=== PATIENT | female | born 1950 | race Caucasian/White ===

== ENCOUNTER → 2018-04-25 19:45 | Outpatient (CLI) | payer MEDICAID, SELFPAY ==
[2018-04-25 21:52] LABS: Amphetamine Urine VISTA NEGATIVE (<1000 ng/mL); Barbiturate Urine VISTA NEGATIVE (< 200 ng/mL); Benzodiazepine Urine VISTA NEGATIVE (< 200 ng/mL); Cocaine Urine VISTA NEGATIVE (< 300 ng/mL); Ecstacy Urine VISTA POSITIVE (< 500 ng/mL); Methadone Urine VISTA NEGATIVE (< 300 ng/mL); PCP Urine VISTA NEGATIVE (< 25 ng/mL); THC Urine VISTA NEGATIVE (< 50 ng/mL); Vista UDS pH Range 5
== END ==
PROVIDERS: Visit Provider Anesthesiology
DX: F11.20 Opioid dependence, uncomplicated (principal)
CPT/HCPCS: 80307

== ENCOUNTER 2018-08-08 12:09 | Day surgery (SDC) | payer MEDICAID, SELFPAY ==
[2018-08-08 12:45] VITALS: BP 143/80; PULSE 60; RESP 17; TEMP 36.8; O2SAT 99; BMI 32.8
[2018-08-08 13:00] LABS: Bedside Glucose 98 mg/dL (70-110)
--- NOTE | 2018-08-08 13:30 | RAD_ITS ---
PROCEDURE: L3 S1 right facet joint block. DATE OF EXAMINATION: August 08, 2018 INDICATION: Female, 67 years old. Chronic low back pain FLUOROSCOPY TIME (if supplied): (0:18) minutes/seconds. 3 intraoperative images were obtained. Intraoperative imaging was provided for right L3-S1 facet joint block. The spinal needles are seen. RAD/L/S Spine Min 4 Views IMPRESSION: Fluoroscopic imaging provided for intraoperative right L3-S1 facet joint block. Electronically Signed: Surendra Ferrell MD at 15:47 EST Tel [phone], Service support ,
--- NOTE | 2018-08-08 14:23 | DCINST_ITS ---
- Discharge Diagnoses Current Active Problems: Facets joints pain, or back pain You will use the following diet at home:: No restrictions Your food should be the consistency of: Regular Discharge Activity: Return to Normal Activity May shower in (days): 1 May resume sexual activity in: No Restrictions Weight Bearing Status: Weight bearing as tolerated Call your doctor if your incision/area has: Continuous Slow Oozing, Sudden Increased Bleeding, Increased Pain/ Swelling, Increased Redness, Foul Smelling Discharge, Swelling at the incision site Call your doctor if you observe: Calf discomfort, Uncontrolled pain Suture Line Care: Avoid Pulling/Pushing, Avoid Pinching/Bending Cleanse incision/area with: Soap & Water Allergies/Adverse Reactions: Allergies butorphanol [From Stadol] Allergy (Verified 08/08/18 12:44) Unknown ketorolac Allergy (Verified 08/08/18 12:44) Itching prochlorperazine [From Compazine] Allergy (Verified 08/08/18 12:44) Unknown sumatriptan [From Imitrex] Allergy (Verified 08/08/18 12:44) stopped breathing amoxicillin [From Augmentin] Adverse Reaction (Verified 08/08/18 12:44) Nausea/Vom/Diarrhea clavulanic acid [From Augmentin] Adverse Reaction (Verified 08/08/18 12:44) Nausea/Vom/Diarrhea pentazocine [From Talwin] Adverse Reaction (Verified 08/08/18 12:44) Vomiting Medications to take at Discharge ALPRAZolam [Xanax] 0.25 mg PO QHS 08/07/18 Acetaminophen [Tylenol] 650 mg PO Q4H PRN PRN 08/07/18 Albuterol IH (ProAir) [Proair Hfa (SP)Vent Pts] 1 - 2 puff INHALATION Q6H PRN PRN 08/07/18 Albuterol Inhaler [Ventolin Hfa (SP)] 1 - 2 puff INHALATION Q4H PRN PRN 08/07/18 Alendronate Sodium [Fosamax] 70 mg PO Q7D@0700 08/07/18 Aspirin E.C. [Ecotrin] 81 mg PO DAILY@0800 08/07/18 Atorvastatin Calcium [Lipitor] 80 mg PO QHS 08/07/18 Buprenorphine 20 Mcg/Hr [Butrans 20 Mcg/Hr] 10 mcg TRANSDERM. Q7D 12/06/18 Carvedilol [Coreg] 25 mg PO BID 08/07/18 Diclofenac [Voltaren] 50 mg PO BIDCM 08/07/18 Diphenoxylate/Atrop [Lomotil] 1 tablet PO BID PRN PRN 08/07/18 Fluticasone 0.05% [Flonase Nasal [place]] 1 spray NASAL DAILY 08/07/18 Metaxalone [Skelaxin] 800 mg PO BID 08/07/18 Multivitamins,Ther W-Minerals [Multivitamin With Minerals] 1 tablet PO DAILY 08/07/18 Nitroglycerin 0.4 mg SL PRN PRN 08/07/18 Oxybutynin Chloride [Ditropan Xl] 5 mg PO 4X/DAY 08/07/18 Potassium Chloride [K-Dur] 20 meq PO BID 08/07/18 Ranolazine [Ranexa] 500 mg PO BID 08/07/18 Senna [Senokot] 2 tablet PO DAILY PRN 08/07/18 Trazodone ER [Oleptro Er] 300 mg PO QHS 08/07/18 Ubidecarenone [Co Q-10] 30 mg PO BID 08/07/18 Valacyclovir HCl [Valtrex] 500 mg PO DAILY PRN 08/07/18 Zolpidem Tartrate [Ambien (Generic)] 5 mg PO QHS 08/07/18 Primary Care Physician: [facility] Doctor,Out of [Primary Care Provider] - Test Results: Test results from this visit will be discussed in further detail at your follow- up appointment, if applicable. Please Follow Up With: Jung Dunham MD
--- NOTE | 2018-08-08 14:24 | PCM.OPRPT ---
Problem List (1) Low back pain Status: Acute (2) Low back pain Status: Acute (3) Spondylosis of lumbar region without myelopathy or radiculopathy Status: Acute (4) Spondylosis of lumbar region without myelopathy or radiculopathy Status: Acute (5) Acute exacerbation of chronic low back pain Status: Chronic (6) Acute exacerbation of chronic low back pain Status: Chronic Report of Operation Date of Procedure: 08/08/18 Pre-Operative Diagnosis: Lumbar facet joint spondylosis Post-Operative Diagnosis: Lumbar facet joint spondylosis Surgery/Procedure Performed:: Right side lumbar facet joints medial nerve branch block under fluoroscopy guidance at the level of the L3-4 L4-5-S1 Description of Surgical Findings:: Under sterile conditions. Patient placed in the prone position, pressure points were padded, patient was ready from the nursing and the anesthesia team. After identification of the side and the target area for the block under guided fluoroscopy, the entry site was marked with marking pen. I used Betadine for sterilization of the skin, sterile draping were applied. Using 25-gauge needle to infiltrate the skin with local anesthesia using preservative-free lidocaine 0.5% injected 2.5 mL at each site of entry. Using oblique fluoroscopy, accessed the right medial nerve branch supplying the [right] lumbar facets L3-4, L4-5, L5-S1 using 22-gauge spinal needle. After confirmation of appropriate needle placement to the targeted area with AP and lateral fluoroscopy, injected 2.5 mL mixture of preservative-free Marcaine 0.25% and Kenalog [10] mg at each site. [place] was removed, pressure dressing were applied. Patient tolerated the procedure well and was taken to the recovery. Type of Anesthesia:: Local MAC, MAC/Supplemental Special Medications: Bupivacaine 0.5% preservative-free. Lidocaine 1% preservative-free. Normal saline preservative-free. Kenalog 40 mg Description of Procedure: See above - Complications None
[2018-08-08] MEDS: Triamcinolone Acetonide 40 MG/ML Vial (14:30)
[2018-08-08] MEDS: Bupivacaine 0.25% 30 ML Vial (14:30)
[2018-08-08 14:45] VITALS: BP 126/80; BP 143/80; PULSE 64; RESP 18; O2SAT 98
[2018-08-08 14:46] VITALS: BP 126/80; BP 143/80; PULSE 63; RESP 18; TEMP 36.1; O2SAT 94
[2018-08-08 14:50] VITALS: BP 129/97; BP 143/80; PULSE 66; RESP 18; O2SAT 99
[2018-08-08 14:58] VITALS: BP 138/82; BP 143/80; PULSE 63; RESP 18; TEMP 36.6; O2SAT 100
[2018-08-08 15:43] VITALS: BP 143/80
== END 2018-08-08 15:43 | disposition home or self-care (01) ==
LOC: SDC 12:10 → AC 12:11
PROVIDERS: Referring Provider Anesthesiology; Visit Provider Anesthesiology
PROC: 3E0T3BZ Introduction of Anesthetic Agent into Peripheral Nerves and Plexi, Percutaneous Approach (ICD-10-PCS; CPT 64493; principal; 2018-08-08 13:25)
DX: M47.816 Spondylosis without myelopathy or radiculopathy, lumbar region (principal); M51.36 Other intervertebral disc degeneration, lumbar region; G89.29 Other chronic pain; M54.5 Low back pain; E11.9 Type 2 diabetes mellitus without complications; I10 Essential (primary) hypertension; G43.909 Migraine, unspecified, not intractable, without status migrainosus; I69.311 Memory deficit following cerebral infarction; I69.351 Hemiplegia and hemiparesis following cerebral infarction affecting right dominant side; E78.00 Pure hypercholesterolemia, unspecified; K74.60 Unspecified cirrhosis of liver; J45.909 Unspecified asthma, uncomplicated; K21.9 Gastro-esophageal reflux disease without esophagitis; I25.2 Old myocardial infarction; Z78.0 Asymptomatic menopausal state; Z79.84 Long term (current) use of oral hypoglycemic drugs; Z79.82 Long term (current) use of aspirin; Z79.899 Other long term (current) drug therapy; Z86.718 Personal history of other venous thrombosis and embolism; Z86.711 Personal history of pulmonary embolism; Z87.891 Personal history of nicotine dependence; Z95.810 Presence of automatic (implantable) cardiac defibrillator
CPT/HCPCS: 64493; 64494; 64495; 64483; 72110; 82962; J7120; A4216; J3490

== ENCOUNTER 2018-08-22 11:53 | Day surgery (SDC) | payer MEDICAID, SELFPAY ==
[2018-08-22] VITALS (7 sets, daily range): BP systolic 110–125; BP diastolic 63–80; PULSE 60–61; RESP 16; TEMP 36.2–37.1; O2SAT 94–97; BMI 30.1
--- NOTE | 2018-08-22 13:00 | RAD_ITS ---
STUDY: X-RAY - LUMBAR SPINE REASON FOR EXAM: Female, 67 years old. Lumbar facet block. TECHNIQUE: 3 C-arm views from the OR, 17.5 seconds fluoroscopy time. COMPARISON: None FINDINGS: 3 C-arm views show needles positioned consistent with the left facet joints from L3 to S1. Correlate with procedure note. Electronically Signed: Yassine Glover MD at 0:02 EST , Service support , RAD/L/S Spine Min 4 Views
[2018-08-22 13:11] LABS: Bedside Glucose 105 mg/dL (70-110)
[2018-08-22] MEDS: Bupivacaine 0.25% 30 ML Vial (14:02)
[2018-08-22] MEDS: Triamcinolone Acetonide 40 MG/ML Vial (14:03)
--- NOTE | 2018-08-22 14:16 | DCINST_ITS ---
You will use the following diet at home:: No restrictions Allergies/Adverse Reactions: Allergies butorphanol [From Stadol] Allergy (Verified 08/08/18 12:44) Unknown ketorolac Allergy (Verified 08/08/18 12:44) Itching prochlorperazine [From Compazine] Allergy (Verified 08/08/18 12:44) Unknown sumatriptan [From Imitrex] Allergy (Verified 08/08/18 12:44) stopped breathing amoxicillin [From Augmentin] Adverse Reaction (Verified 08/08/18 12:44) Nausea/Vom/Diarrhea clavulanic acid [From Augmentin] Adverse Reaction (Verified 08/08/18 12:44) Nausea/Vom/Diarrhea pentazocine [From Talwin] Adverse Reaction (Verified 08/08/18 12:44) Vomiting Medications to take at Discharge Acetaminophen [Tylenol] 650 mg PO Q4H PRN PRN 08/07/18 Albuterol IH (ProAir) [Proair Hfa (SP)Vent Pts] 1 - 2 puff INHALATION Q6H PRN PRN 08/07/18 Albuterol Inhaler [Ventolin Hfa (SP)] 1 - 2 puff INHALATION Q4H PRN PRN 08/07/18 Alendronate Sodium [Fosamax] 70 mg PO Q7D@0700 08/07/18 Aspirin E.C. [Ecotrin] 81 mg PO DAILY@0800 08/07/18 Atorvastatin Calcium [Lipitor] 80 mg PO QHS 08/07/18 Buprenorphine 20 Mcg/Hr [Butrans 20 Mcg/Hr] 10 mcg TRANSDERM. Q7D 08/07/18 Carvedilol [Coreg] 25 mg PO BID 08/07/18 Diclofenac [Voltaren] 50 mg PO BIDCM 08/07/18 Fluticasone 0.05% [Flonase Nasal [place]] 1 spray NASAL DAILY 08/07/18 Metaxalone [Skelaxin] 800 mg PO BID 08/07/18 Multivitamins,Ther W-Minerals [Multivitamin With Minerals] 1 tablet PO DAILY 08/07/18 Nitroglycerin 0.4 mg SL PRN PRN 08/07/18 Oxybutynin Chloride [Ditropan Xl] 5 mg PO 4X/DAY 08/07/18 Potassium Chloride [K-Dur] 20 meq PO BID 08/07/18 Ranolazine [Ranexa] 500 mg PO BID 08/07/18 Senna [Senokot] 2 tablet PO DAILY PRN 08/07/18 Trazodone ER [Oleptro Er] 300 mg PO QHS 08/07/18 Ubidecarenone [Co Q-10] 30 mg PO BID 08/07/18 Valacyclovir HCl [Valtrex] 500 mg PO DAILY PRN 08/07/18 Zolpidem Tartrate [Ambien (Generic)] 5 mg PO QHS 08/07/18 Metformin HCl [Glucophage] 500 mg PO BIDCM 08/22/18 Primary Care Physician: [facility] Doctor,Out of [Primary Care Provider] - Test Results: Test results from this visit will be discussed in further detail at your follow- up appointment, if applicable.
--- NOTE | 2018-08-22 14:16 | PCM.OPRPT ---
Problem List (1) Low back pain Status: Acute (2) Low back pain Status: Acute (3) Spondylosis of lumbar region without myelopathy or radiculopathy Status: Acute (4) Spondylosis of lumbar region without myelopathy or radiculopathy Status: Acute Report of Operation Date of Procedure: 08/22/18 Pre-Operative Diagnosis: Lumbar facets spondylosis Post-Operative Diagnosis: same Surgery/Procedure Performed:: Left Lumbar afcets injection at L:eft L3-4, L4-5, L5-S1 under fluroscopy Description of Surgical Findings:: Left L3-4 L4-5 L5-S1 facet medial nerve branch block under fluoroscopy guidance Under sterile conditions. Patient placed in the prone position, pressure points were padded, patient was ready from the nursing and the anesthesia team. After identification of the side and the target area for the block under guided fluoroscopy, the entry site was marked with marking pen. I used Betadine for sterilization of the skin, sterile draping were applied. Using 25-gauge needle to infiltrate the skin with local anesthesia using preservative-free lidocaine 0.5% injected 2.5 mL at each site of entry. Using oblique fluoroscopy, accessed the right medial nerve branch supplying the left lumbar facets L3-4, L4-5, L5-S1 using 22-gauge spinal needle. After confirmation of appropriate needle placement to the targeted area with AP and lateral fluoroscopy, injected 2.5 mL mixture of preservative-free Marcaine 0.5% and Kenalog [10] mg at each site. [place] was removed, pressure dressing were applied. Patient tolerated the procedure well and was taken to the recovery. Type of Anesthesia:: Local MAC Special Medications: Lidocaine 1% preservative-free, bupivacaine 0.5% preservative-free , Kenalog 40 mg Estimated Blood Loss (mL): None - Complications None
== END 2018-08-22 15:30 | disposition home or self-care (01) ==
LOC: SDC 11:54 → AC 11:55
PROVIDERS: Referring Provider Anesthesiology; Visit Provider Anesthesiology
PROC: 3E0T3BZ Introduction of Anesthetic Agent into Peripheral Nerves and Plexi, Percutaneous Approach (ICD-10-PCS; CPT 64493; principal; 2018-08-22 12:55)
DX: M47.816 Spondylosis without myelopathy or radiculopathy, lumbar region (principal); D64.9 Anemia, unspecified; E78.00 Pure hypercholesterolemia, unspecified; G25.81 Restless legs syndrome; E11.9 Type 2 diabetes mellitus without complications; F32.9 Major depressive disorder, single episode, unspecified; F41.9 Anxiety disorder, unspecified; G43.909 Migraine, unspecified, not intractable, without status migrainosus; I48.91 Unspecified atrial fibrillation; I25.2 Old myocardial infarction; I10 Essential (primary) hypertension; Z95.0 Presence of cardiac pacemaker; Z79.82 Long term (current) use of aspirin; Z79.84 Long term (current) use of oral hypoglycemic drugs; Z79.899 Other long term (current) drug therapy; Z87.891 Personal history of nicotine dependence
CPT/HCPCS: 01922; 64493; 64494; 64495; 64483; 72110; 82962; J7120; A4216

== ENCOUNTER 2018-10-17 11:02 | Day surgery (SDC) | payer MEDICAID, SELFPAY ==
[2018-08-22 12:19] VITALS: BMI 30.1
[2018-10-17] VITALS (7 sets, daily range): BP systolic 118–147; BP diastolic 69–83; PULSE 59–64; RESP 16–18; TEMP 36.2–37.1; O2SAT 96–99; BMI 32.9
[2018-10-17 12:31] LABS: Bedside Glucose 114 mg/dL (70-110)
[2018-10-17] MEDS: Triamcinolone Acetonide 40 MG/ML Vial (13:02)
--- NOTE | 2018-10-17 14:00 | RAD_ITS ---
PROCEDURE: Left SI joint injection. DATE OF EXAMINATION: October 17, 2018 INDICATION: Female, 68 years old. Chronic left lower back pain. FLUOROSCOPY TIME (if supplied): (0:24) minutes/seconds. Single intraoperative coned down view. Intraoperative fluoroscopy provided for left SI joint injection. RAD/Fluoro Guided Needle Placement IMPRESSION: Intraoperative fluoroscopy provided for left SI joint injection. Electronically Signed: Surendra Ferrell MD at 8:56 EST , Service support ,
[2018-10-17] MEDS: Bupivacaine 0.25% 30 ML Vial (14:11)
--- NOTE | 2018-10-17 14:20 | PCM.DC ---
- Discharge Diagnoses Current Active Problems: Sacroiliac joint pain and lower back pain Reason(s) for Visit for Discharge Instructions: Patient to have left sacroiliac joint injection under fluoroscopy You will use the following diet at home:: No restrictions Your food should be the consistency of: Regular Discharge Activity: Return to Normal Activity Return to work on:: 10/20/18 May resume sexual activity in: No Restrictions Weight Bearing Status: Weight bearing as tolerated Call your doctor if your incision/area has: Continuous Slow Oozing, Sudden Increased Bleeding, Increased Pain/ Swelling, Increased Redness, Foul Smelling Discharge, Swelling at the incision site Call your doctor if you observe: Fever of 101 or Higher, Numbness or Tingling, Calf discomfort, Uncontrolled pain Suture Line Care: Avoid Pulling/Pushing, Avoid Pinching/Bending Change Dressing in (Days):: 0 Remove Dressing in (days):: 1 Cleanse incision/area with: Soap & Water Allergies/Adverse Reactions: Allergies butorphanol [From Stadol] Allergy (Verified 08/08/18 12:44) Unknown ketorolac Allergy (Verified 08/08/18 12:44) Itching prochlorperazine [From Compazine] Allergy (Verified 08/08/18 12:44) Unknown sumatriptan [From Imitrex] Allergy (Verified 08/08/18 12:44) stopped breathing amoxicillin [From Augmentin] Adverse Reaction (Verified 08/08/18 12:44) Nausea/Vom/Diarrhea clavulanic acid [From Augmentin] Adverse Reaction (Verified 08/08/18 12:44) Nausea/Vom/Diarrhea pentazocine [From Talwin] Adverse Reaction (Verified 08/08/18 12:44) Vomiting Medications to take at Discharge Acetaminophen [Tylenol] 650 mg PO Q4H PRN PRN 08/07/18 Albuterol IH (ProAir) [Proair Hfa (SP)Vent Pts] 1 - 2 puff INHALATION Q6H PRN PRN 08/07/18 Albuterol Inhaler [Ventolin Hfa (SP)] 1 - 2 puff INHALATION Q4H PRN PRN 08/07/18 Alendronate Sodium [Fosamax] 70 mg PO Q7D@0708/07/18 Aspirin E.C. [Ecotrin] 81 mg PO DAILY@0808/07/18 Atorvastatin Calcium [Lipitor] 80 mg PO QHS 08/07/18 Buprenorphine 20 Mcg/Hr [Butrans 20 Mcg/Hr] 10 mcg TRANSDERM. Q7D 08/07/18 Carvedilol [Coreg] 25 mg PO BID 08/07/18 Diclofenac [Voltaren] 50 mg PO BIDCM 08/07/18 Fluticasone 0.05% [Flonase Nasal [place]] 1 spray NASAL DAILY 08/07/18 Metaxalone [Skelaxin] 800 mg PO BID 08/07/18 Multivitamins,Ther W-Minerals [Multivitamin With Minerals] 1 tablet PO DAILY 08/07/18 Nitroglycerin 0.4 mg SL PRN PRN 08/07/18 Oxybutynin Chloride [Ditropan Xl] 5 mg PO 4X/DAY 08/07/18 Potassium Chloride [K-Dur] 20 meq PO BID 08/07/18 Ranolazine [Ranexa] 500 mg PO BID 08/07/18 Senna [Senokot] 2 tablet PO DAILY PRN 08/07/18 Trazodone ER [Oleptro Er] 300 mg PO QHS 08/07/18 Ubidecarenone [Co Q-10] 30 mg PO BID 08/07/18 Valacyclovir HCl [Valtrex] 500 mg PO DAILY PRN 08/07/18 Zolpidem Tartrate [Ambien (Generic)] 5 mg PO QHS 08/07/18 Metformin HCl [Glucophage] 500 mg PO BIDCM 08/22/18 Magnesium 200 mg PO DAILY 10/17/18 Primary Care Physician: [facility] Doctor,Out of [Primary Care Provider] - Test Results: Test results from this visit will be discussed in further detail at your follow-up appointment, if applicable. Please Follow Up With: Jung Dunham MD
--- NOTE | 2018-10-17 14:25 | OP.PCM_ITS ---
Problem List (1) Sacroiliitis, not elsewhere classified Status: Acute (2) Inflammation of left sacroiliac joint Status: Acute (3) Sacroiliitis Status: Acute Report of Operation Date of Procedure: 10/17/18 Pre-Operative Diagnosis: Left sacroiliitis and left gluteal pain Post-Operative Diagnosis: Same Surgery/Procedure Performed:: Left sacroiliac joint injection under fluoroscopy guidance Description of Surgical Findings:: Under sterile conditions. Patient placed in the prone position, pressure points were padded, patient was ready from the nursing and the anesthesia team. After identification of the side and the target area for the block to the left sacroiliac joint under guided fluoroscopy, the entry site was marked with marking pen. I used Betadine for sterilization of the skin, sterile draping were applied. Using 25-gauge needle to infiltrate the skin with local anesthesia using preservative-free lidocaine 0.5% injected 5 mL at site of entry. Using oblique fluoroscopy, accessed the left sacroiliac joint using 22-gauge spinal needle. After confirmation of appropriate needle placement to the targeted area with AP and lateral fluoroscopy, injected contrast solution 3 AM showed very good distribution along the anteroposterior dimension of the left sacroiliac joint under fluoroscopy, see of the image, injected 10 mL mixture of preservative-free Marcaine 0.5% and Kenalog [40] mg at each site. [place] was removed, pressure dressing were applied. Patient tolerated the procedure well and was taken to the recovery. Type of Anesthesia:: Local MAC
== END 2018-10-17 15:19 | disposition home or self-care (01) ==
LOC: SDC 11:02 → AC 11:04
PROVIDERS: Referring Provider Anesthesiology; Visit Provider Anesthesiology
PROC: 3E0U3GC Introduction of Other Therapeutic Substance into Joints, Percutaneous Approach (ICD-10-PCS; CPT 27096; principal; 2018-10-17 13:25)
DX: M46.1 Sacroiliitis, not elsewhere classified (principal); M79.18 Myalgia, other site; E78.00 Pure hypercholesterolemia, unspecified; G25.81 Restless legs syndrome; E11.9 Type 2 diabetes mellitus without complications; I25.2 Old myocardial infarction; I11.0 Hypertensive heart disease with heart failure; I50.9 Heart failure, unspecified; J45.909 Unspecified asthma, uncomplicated; G43.909 Migraine, unspecified, not intractable, without status migrainosus; Z95.0 Presence of cardiac pacemaker; Z99.81 Dependence on supplemental oxygen; Z79.82 Long term (current) use of aspirin; Z79.84 Long term (current) use of oral hypoglycemic drugs; Z79.899 Other long term (current) drug therapy; Z87.891 Personal history of nicotine dependence
CPT/HCPCS: 27096; 76000; 77002; 82962; J7120; A4216; J2405

== ENCOUNTER → 2018-12-05 15:49 | Outpatient (CLI) | payer MEDICAID, SELFPAY ==
[2018-10-17 11:38] VITALS: BMI 32.9
--- NOTE | 2018-12-05 15:54 | RAD_ITS ---
STUDY: X-RAY - CERVICAL SPINE REASON FOR EXAM: Female, 68 years old. Neck pain. TECHNIQUE: 5 view(s) of the cervical spine were obtained. COMPARISON: None FINDINGS: Normal anterior atlantoaxial articulation. Normal odontoid process. Normal cervical lordosis. Normal vertebral bodies and endplates. C7 vertebra is not well-seen on the lateral view. Normal disc space heights. There are small posterior lateral degenerative spurs on the right side of the level of C4-C5. The soft tissue structures are unremarkable. RAD/Cerv Spine 4 or 5 Views IMPRESSION: Mild degenerative changes. Electronically Signed: Jasbir Reese MD at 15:54 EDT Tel , Service support ,
== END ==
PROVIDERS: Referring Provider Anesthesiology; Visit Provider Anesthesiology
DX: M54.2 Cervicalgia (principal)
CPT/HCPCS: 72050; 72052

== ENCOUNTER 2019-01-16 12:42 | Day surgery (SDC) | payer MEDICAID, SELFPAY ==
[2018-10-17 11:38] VITALS: BMI 32.9
[2019-01-16] VITALS (10 sets, daily range): BP systolic 103–122; BP diastolic 58–91; PULSE 61–63; RESP 17–18; TEMP 36.3–36.4; O2SAT 95–99; BMI 34.0
[2019-01-16 14:05] LABS: Bedside Glucose 97 mg/dL (70-110)
--- NOTE | 2019-01-16 14:52 | DCINST_ITS ---
- Discharge Diagnoses Current Active Problems: Cervical spine pain and cervical radiculopathy You will use the following diet at home:: No restrictions Your food should be the consistency of: Regular Discharge Activity: Return to Normal Activity, No Restrictions, May Not Drive May shower in (days): 1 May resume sexual activity in: No Restrictions Weight Bearing Status: Weight bearing as tolerated, Full weight bearing, Partial weight bearing, Toe touch weight bearing, No weight bearing Call your doctor if your incision/area has: Continuous Slow Oozing, Sudden Increased Bleeding, Increased Pain/ Swelling, Increased Redness, Foul Smelling Discharge, Swelling at the incision site Call your doctor if you observe: Fever of 101 or Higher, Coldness, Increased Pain, Uncontrolled pain Suture Line Care: Avoid Pulling/Pushing, Avoid Pinching/Bending Remove Dressing in (days):: 1 Cleanse incision/area with: Soap & Water Allergies/Adverse Reactions: Allergies butorphanol [From Stadol] Allergy (Verified 08/08/18 12:44) Unknown ketorolac Allergy (Verified 08/08/18 12:44) Itching prochlorperazine [From Compazine] Allergy (Verified 08/08/18 12:44) Unknown sumatriptan [From Imitrex] Allergy (Verified 08/08/18 12:44) stopped breathing amoxicillin [From Augmentin] Adverse Reaction (Verified 08/08/18 12:44) Nausea/Vom/Diarrhea clavulanic acid [From Augmentin] Adverse Reaction (Verified 08/08/18 12:44) Nausea/Vom/Diarrhea pentazocine [From Talwin] Adverse Reaction (Verified 08/08/18 12:44) Vomiting Medications to take at Discharge Acetaminophen [Tylenol] 650 mg PO Q4H PRN PRN 08/07/18 Albuterol IH (ProAir) [Proair Hfa (SP)Vent Pts] 1 - 2 puff INHALATION Q6H PRN PRN 08/07/18 Albuterol Inhaler [Ventolin Hfa (SP)] 1 - 2 puff INHALATION Q4H PRN PRN 08/07/18 Alendronate Sodium [Fosamax] 70 mg PO Q7D@0700 08/07/18 Aspirin E.C. [Ecotrin] 81 mg PO DAILY@0800 08/07/18 Atorvastatin Calcium [Lipitor] 80 mg PO QHS 08/07/18 Buprenorphine 20 Mcg/Hr [Butrans 20 Mcg/Hr] 10 mcg TRANSDERM. Q7D 08/07/18 Carvedilol [Coreg] 25 mg PO BID 08/07/18 Diclofenac [Voltaren] 50 mg PO BIDCM 08/07/18 Fluticasone 0.05% [Flonase Nasal [place]] 1 spray NASAL DAILY 08/07/18 Metaxalone [Skelaxin] 800 mg PO BID 08/07/18 Multivitamins,Ther W-Minerals [Multivitamin With Minerals] 1 tablet PO DAILY 08/07/18 Nitroglycerin 0.4 mg SL PRN PRN 08/07/18 Oxybutynin Chloride [Ditropan Xl] 5 mg PO 4X/DAY 08/07/18 Potassium Chloride [K-Dur] 20 meq PO BID 08/07/18 Ranolazine [Ranexa] 500 mg PO BID 08/07/18 Senna [Senokot] 2 tablet PO DAILY PRN 08/07/18 Trazodone ER [Oleptro Er] 300 mg PO QHS 08/07/18 Ubidecarenone [Co Q-10] 30 mg PO BID 08/07/18 Valacyclovir HCl [Valtrex] 500 mg PO DAILY PRN 08/07/18 Zolpidem Tartrate [Ambien (Generic)] 5 mg PO QHS 08/07/18 Metformin HCl [Glucophage] 500 mg PO BIDCM 08/22/18 Magnesium 200 mg PO DAILY 10/17/18 Primary Care Physician: [facility] Doctor,Out of [Primary Care Provider] - Test Results: Test results from this visit will be discussed in further detail at your follow- up appointment, if applicable. Please Follow Up With: Jung Dunham MD
--- NOTE | 2019-01-16 14:52 | PCM.OPRPT ---
Problem List (1) Cervical disc disorder with radiculopathy of mid-cervical region Status: Acute (2) Cervical disc disorder with radiculopathy of mid-cervical region Status: Acute (3) Cervicalgia Status: Acute (4) Cervicalgia Status: Acute (5) Other cervical disc degeneration, mid-cervical region, unspecified level Status: Acute (6) Other cervical disc degeneration, mid-cervical region, unspecified level Status: Acute (7) Radiculopathy of cervical region Status: Acute (8) Radiculopathy of cervical region Status: Acute Report of Operation Date of Procedure: 01/16/19 Pre-Operative Diagnosis: Degenerative disc disease with cervical radiculopathy and cervical disc disorders with radiculopathy Post-Operative Diagnosis: Same Surgery/Procedure Performed:: Cervical epidural steroid injection at the level of the C6-7 under fluoroscopy guidance Description of Surgical Findings:: Under sterile conditions. Patient placed in the prone position, pressure points were padded, patient was ready from the nursing and the anesthesia team. After identification of the side and the target area for the block under guided fluoroscopy, the entry site was marked with marking pen. I used Betadine for sterilization of the skin, sterile draping were applied. Using 25-gauge needle to infiltrate the skin with local anesthesia using preservative-free lidocaine 0.5% injected 2.5 mL at site of entry. Using guided fluoroscopy, accessed the the posterior cervical epidural space using 20-gauge Touhy needles under midline approach, accessed the site was assisted with lateral fluoroscopy, followed by using [id number] technique using preservative-free normal saline, negative aspiration of CSF and blood. Injected contrast solution [Isovue 2] mL under live fluoroscopy which showed good spread of the contrast to the posterior epidural space and to the targeted area of the injection at posterior cervical epidural space [ C6-7 ]. Injected [3] mL of mixture of preservative-free lidocaine and Kenalog [80] mg for the procedure which showed appropriate spread in the epidural space. [place] was removed, pressure dressing were applied. Patient tolerated the procedure well and was taken to the recovery. Type of Anesthesia:: Local MAC Description of Procedure: Same as above - Complications None
--- NOTE | 2019-01-16 14:55 | OP.PCM_ITS ---
Problem List (1) Cervical disc disorder with radiculopathy of mid-cervical region Status: Acute (2) Cervical disc disorder with radiculopathy of mid-cervical region Status: Acute (3) Cervicalgia Status: Acute (4) Cervicalgia Status: Acute (5) Other cervical disc degeneration, mid-cervical region, unspecified level Status: Acute (6) Other cervical disc degeneration, mid-cervical region, unspecified level Status: Acute (7) Radiculopathy of cervical region Status: Acute (8) Radiculopathy of cervical region Status: Acute Report of Operation Date of Procedure: 01/16/19 Pre-Operative Diagnosis: Degenerative disc disease with cervical radiculopathy and cervical disc disorders with radiculopathy Post-Operative Diagnosis: Same Surgery/Procedure Performed:: Cervical epidural steroid injection at the level of the C6-7 under fluoroscopy guidance Description of Surgical Findings:: Under sterile conditions. Patient placed in the prone position, pressure points were padded, patient was ready from the nursing and the anesthesia team. After identification of the side and the target area for the block under guided fluoroscopy, the entry site was marked with marking pen. I used Betadine for sterilization of the skin, sterile draping were applied. Using 25-gauge needle to infiltrate the skin with local anesthesia using preservative-free lidocaine 0.5% injected 2.5 mL at site of entry. Using guided fluoroscopy, accessed the the posterior cervical epidural space using 20-gauge Touhy needles under midline approach, accessed the site was assisted with lateral fluoroscopy, followed by using [id number] technique using preservative-free normal saline, negative aspiration of CSF and blood. Injected contrast solution [Isovue 2] mL under live fluoroscopy which showed good spread of the contrast to the posterior epidural space and to the targeted area of the injection at posterior cervical epidural space [ C6-7 ]. Injected [3] mL of mixture of preservative-free lidocaine and Kenalog [80] mg for the procedure which showed appropriate spread in the epidural space. [place] was removed, pressure dressing were applied. Patient tolerated the procedure well and was taken to the recovery. Type of Anesthesia:: Local MAC Description of Procedure: Same as above - Complications None
--- NOTE | 2019-01-16 15:00 | RAD_ITS ---
STUDY: X-RAY - LUMBAR SPINE REASON FOR EXAM: Female, 68 years old. Cervical radiculopathy TECHNIQUE: 4 view(s) of the lumbar spine were obtained. COMPARISON: None FINDINGS: 4 images were submitted, as radiology support for c-arm imaging in the operating room. This is not a diagnostic examination. Images for documentation purposes only. Fluoroscopy time if reported: 20 seconds. 2.9 mgy RAD/Spine 1 View Any Level IMPRESSION: Intraoperative fluoroscopic image guidance. Electronically Signed: Komal Perdomo MD at 23:32 EDT , Service support ,
[2019-01-16] MEDS: Triamcinolone Acetonide 40 MG/ML Vial (15:13)
== END 2019-01-16 16:38 | disposition home or self-care (01) ==
LOC: SDC 12:42 → AC 12:43
PROVIDERS: Referring Provider Anesthesiology; Visit Provider Anesthesiology
PROC: 3E0S3BZ Introduction of Anesthetic Agent into Epidural Space, Percutaneous Approach (ICD-10-PCS; CPT 62320; principal; 2019-01-16 13:55)
DX: M50.123 Cervical disc disorder at C6-C7 level with radiculopathy (principal); M50.320 Other cervical disc degeneration, mid-cervical region, unspecified level; M47.816 Spondylosis without myelopathy or radiculopathy, lumbar region; M51.16 Intervertebral disc disorders with radiculopathy, lumbar region; M51.36 Other intervertebral disc degeneration, lumbar region; M79.7 Fibromyalgia; E11.42 Type 2 diabetes mellitus with diabetic polyneuropathy; Z79.84 Long term (current) use of oral hypoglycemic drugs; Z79.82 Long term (current) use of aspirin; Z79.899 Other long term (current) drug therapy
CPT/HCPCS: 62321; 64490; 72020; 82962; J7120; A4216; J2405

== ENCOUNTER → 2019-04-10 08:05 | Outpatient (CLI) | payer MEDICAID, SELFPAY ==
[2019-01-16 13:12] VITALS: BMI 34.0
== END ==
PROVIDERS: Referring Provider Anesthesiology; Visit Provider Anesthesiology
DX: Z01.818 Encounter for other preprocedural examination (principal)

== ENCOUNTER → 2019-04-10 16:31 | Outpatient (CLI) | payer MEDICAID, SELFPAY ==
[2019-01-16 13:12] VITALS: BMI 34.0
[2019-04-10 17:42] LABS: Amphetamine Urine VISTA NEGATIVE (<1000 ng/mL); Barbiturate Urine VISTA NEGATIVE (< 200 ng/mL); Benzodiazepine Urine VISTA NEGATIVE (< 200 ng/mL); Cocaine Urine VISTA NEGATIVE (< 300 ng/mL); Ecstacy Urine VISTA POSITIVE (< 500 ng/mL); Methadone Urine VISTA NEGATIVE (< 300 ng/mL); PCP Urine VISTA NEGATIVE (< 25 ng/mL); THC Urine VISTA NEGATIVE (< 50 ng/mL); Vista UDS pH Range 6
== END ==
PROVIDERS: Referring Provider Anesthesiology; Visit Provider Anesthesiology
DX: F11.20 Opioid dependence, uncomplicated (principal)
CPT/HCPCS: 80307

== ENCOUNTER 2019-04-24 11:24 | Day surgery (SDC) | payer MEDICAID, SELFPAY ==
[2019-01-16 13:12] VITALS: BMI 34.0
[2019-04-24] VITALS (9 sets, daily range): BP systolic 152–174; BP diastolic 82–97; PULSE 60–96; RESP 14–18; TEMP 36–36.4; O2SAT 94–100; BMI 34.2
--- NOTE | 2019-04-24 13:15 | RAD_ITS ---
PROCEDURE: L4-L5 epidural injection. DATE OF EXAMINATION: April 24, 2019. INDICATION: Female, 68 years old. Chronic back pain. FLUOROSCOPY TIME (if supplied): (0:18) minutes/seconds. 5 intraoperative views were obtained. Intraoperative imaging provided for L4-L5 epidural injection. RAD/Spine 1 View Any Level IMPRESSION: Intraoperative imaging provided for L4-L5 epidural injection. Electronically Signed: Surendra Ferrell, at 8:48 EDT , Service support ,
[2019-04-24] MEDS: Lactated Ringers 1,000 ML 75 ML IV (14:00)
--- NOTE | 2019-04-24 14:40 | DCINST_ITS ---
- Discharge Diagnoses Current Active Problems: Lower back pain lumbar radiculopathy You will use the following diet at home:: No restrictions Your food should be the consistency of: Regular Discharge Activity: Return to Normal Activity May shower in (days): 1 May resume sexual activity in: No Restrictions Weight Bearing Status: Weight bearing as tolerated Call your doctor if your incision/area has: Continuous Slow Oozing, Sudden Increased Bleeding, Increased Pain/ Swelling, Increased Redness, Foul Smelling Discharge, Swelling at the incision site Call your doctor if you observe: Fever of 101 or Higher, Coldness, Increased Pain, Numbness or Tingling, Uncontrolled pain Suture Line Care: Avoid Pulling/Pushing, Avoid Pinching/Bending Remove Dressing in (days):: 1 Cleanse incision/area with: Soap & Water, Keep Dressing Clean & Dry Instructions: What Is Osteoarthritis?, Understanding Osteoarthritis, Osteoarthritis: Coping with Pain, Osteoarthritis: Managing Pain, Living with Osteoarthritis, Osteoarthritis: Common Sites, Osteoarthritis: Exercise, Osteoarthritis: Tips for Daily Living Allergies/Adverse Reactions: Allergies butorphanol [From Stadol] Allergy (Verified 03/19/19 14:31) Unknown ketorolac Allergy (Verified 03/19/19 14:31) Itching prochlorperazine [From Compazine] Allergy (Verified 03/19/19 14:31) Unknown sumatriptan [From Imitrex] Allergy (Verified 03/19/19 14:31) stopped breathing amoxicillin [From Augmentin] Adverse Reaction (Verified 03/19/19 14:31) Nausea/Vom/Diarrhea clavulanic acid [From Augmentin] Adverse Reaction (Verified 03/19/19 14:31) Nausea/Vom/Diarrhea pentazocine [From Talwin] Adverse Reaction (Verified 03/19/19 14:31) Vomiting Medications to take at Discharge Acetaminophen [Tylenol] 650 mg PO Q4H PRN PRN 18 Albuterol IH (ProAir) [Proair Hfa (SP)Vent Pts] 1 - 2 puff INHALATION Q6H PRN PRN 18 Albuterol Inhaler [Ventolin Hfa (SP)] 1 - 2 puff INHALATION Q4H PRN PRN 18 Alendronate Sodium [Fosamax] 70 mg PO Q7D@0700 08/07/18 Aspirin E.C. [Ecotrin] 81 mg PO DAILY@0800 08/07/18 Atorvastatin Calcium [Lipitor] 80 mg PO QHS 08/07/18 Buprenorphine 20 Mcg/Hr [Butrans 20 Mcg/Hr] 10 mcg TRANSDERM. Q7D 08/07/18 Carvedilol [Coreg] 25 mg PO BID 08/07/18 Diclofenac [Voltaren] 50 mg PO BIDCM 08/07/18 Fluticasone 0.05% [Flonase Nasal [place]] 1 spray NASAL DAILY 08/07/18 Metaxalone [Skelaxin] 800 mg PO BID 08/07/18 Multivitamins,Ther W-Minerals [Multivitamin With Minerals] 1 tablet PO DAILY 08/07/18 Nitroglycerin 0.4 mg SL PRN PRN 08/07/18 Oxybutynin Chloride [Ditropan Xl] 5 mg PO 4X/DAY 08/07/18 Potassium Chloride [K-Dur] 20 meq PO BID 08/07/18 Ranolazine [Ranexa] 500 mg PO BID 08/07/18 Senna [Senokot] 2 tablet PO DAILY PRN 08/07/18 Trazodone ER [Oleptro Er] 300 mg PO QHS 08/07/18 Ubidecarenone [Co Q-10] 30 mg PO BID 08/07/18 Valacyclovir HCl [Valtrex] 500 mg PO DAILY PRN 08/07/18 Zolpidem Tartrate [Ambien (Generic)] 5 mg PO QHS 08/07/18 metFORMIN HCl [Glucophage] 500 mg PO BIDCM 08/22/18 Magnesium 200 mg PO DAILY 10/17/18 Levofloxacin [Levaquin] 500 mg PO DAILY 03/19/19 Primary Care Physician: SNEHAL BRODERICK III [Other] Test Results: Test results from this visit will be discussed in further detail at your follow- up appointment, if applicable. Please Follow Up With: Jung Dunham MD
[2019-04-24 14:41] LABS: Bedside Glucose 102 mg/dL (70-110)
--- NOTE | 2019-04-24 14:42 | PCM.OPRPT ---
Problem List (1) Acute exacerbation of chronic low back pain Status: Chronic (2) Acute exacerbation of chronic low back pain Status: Chronic (3) Acute low back pain due to spinal disorder Status: Acute (4) Acute low back pain due to spinal disorder Status: Acute (5) Low back pain Status: Acute (6) Low back pain Status: Acute (7) Intervertebral disc disorder with radiculopathy of lumbar region Status: Acute (8) Intervertebral disc disorder with radiculopathy of lumbar region Status: Acute Report of Operation Date of Procedure: 04/24/19 Pre-Operative Diagnosis: Lumbar degenerative disc disease and lumbar radiculopathy Post-Operative Diagnosis: Lumbar disc displacement lumbar degenerative disc disease lumbar radiculopathy Surgery/Procedure Performed:: Lumbar epidural steroid injection at the level of the L4-5 under fluoroscopy Description of Surgical Findings:: Under sterile conditions. Patient placed in the prone position, pressure points were padded, patient was ready from the nursing and the anesthesia team. After identification of the side and the target area for the block under guided fluoroscopy, the entry site was marked with marking pen. I used Betadine for sterilization of the skin, sterile draping were applied. Using 25-gauge needle to infiltrate the skin with local anesthesia using preservative-free lidocaine 0.5% injected 2.5 mL at site of entry. Using guided fluoroscopy, accessed the the posterior epidural space using 18-gauge Touhy needles under midline approach, accessed the site was assisted with lateral fluoroscopy, followed by using [id number] technique using preservative-free normal saline, negative aspiration of CSF and blood. Injected contrast solution [2.5] mL under live fluoroscopy which showed good spread of the contrast to the posterior epidural space and to the targeted area of the injection at[ L4-5]. Injected [5] mL of mixture of preservative-free lidocaine and Kenalog [40] mg for the procedure which showed appropriate spread in the epidural space. [place] was removed, pressure dressing were applied. Patient tolerated the procedure well and was taken to the recovery. Type of Anesthesia:: Local MAC Estimated Blood Loss (mL): None - Complications None
[2019-04-24] MEDS: Triamcinolone Acetonide 40 MG/ML Vial (14:53)
== END 2019-04-24 15:50 | disposition home or self-care (01) ==
LOC: SDC 11:28 → AC 11:34
PROVIDERS: Referring Provider Anesthesiology; Visit Provider Anesthesiology
PROC: 3E0S3BZ Introduction of Anesthetic Agent into Epidural Space, Percutaneous Approach (ICD-10-PCS; CPT 62322; principal; 2019-04-24 13:10)
DX: M51.16 Intervertebral disc disorders with radiculopathy, lumbar region (principal); G89.29 Other chronic pain; I48.91 Unspecified atrial fibrillation; I25.2 Old myocardial infarction; I10 Essential (primary) hypertension; E11.9 Type 2 diabetes mellitus without complications; K21.9 Gastro-esophageal reflux disease without esophagitis; E78.00 Pure hypercholesterolemia, unspecified; F32.9 Major depressive disorder, single episode, unspecified; F41.9 Anxiety disorder, unspecified; J44.9 Chronic obstructive pulmonary disease, unspecified; Z95.0 Presence of cardiac pacemaker; Z79.84 Long term (current) use of oral hypoglycemic drugs; Z79.82 Long term (current) use of aspirin; Z79.899 Other long term (current) drug therapy; Z87.891 Personal history of nicotine dependence
CPT/HCPCS: 62323; 64483; 72020; 82962; J7120; A4216

== ENCOUNTER 2019-05-29 11:24 | Day surgery (SDC) | payer MEDICAID, SELFPAY ==
[2019-04-24 13:51] VITALS: BMI 34.2
[2019-05-29] VITALS (8 sets, daily range): BP systolic 117–140; BP diastolic 69–103; PULSE 61–64; RESP 14–16; TEMP 36.3–36.7; O2SAT 92–97; BMI 36.1
--- NOTE | 2019-05-29 12:00 | RAD_ITS ---
STUDY: X-RAY - LUMBAR SPINE REASON FOR EXAM: Female, 68 years old. Note block L3-S1. TECHNIQUE: 4 intraoperative fluoroscopic view(s) of the lumbar spine were obtained. COMPARISON: None FINDINGS: Fluoroscopic guidance was provided during an L3-S1 block. Correlation with the operative report is recommended. RAD/Lumbar Spine 2 or 3 Views IMPRESSION: As above. Electronically Signed: Tima Gonzalez, at 17:18 EDT Tel , Service support ,
[2019-05-29] MEDS: Lactated Ringers 1,000 ML 100 ML IV (12:06)
[2019-05-29 12:16] LABS: Bedside Glucose 100 mg/dL (70-110)
--- NOTE | 2019-05-29 12:48 | PCM.DC ---
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 Reason(s) for Visit for Discharge Instructions: Lumbar facet blocks under fluoroscopy guidance to the left side, L3-4 L4-5 5 S1 You will use the following diet at home:: No restrictions, Regular Your food should be the consistency of: Regular Discharge Activity: Return to Normal Activity, No Restrictions May shower in (days): 1 May resume sexual activity in: No Restrictions Weight Bearing Status: Weight bearing as tolerated, Full weight bearing, Partial weight bearing, Toe touch weight bearing Call your doctor if your incision/area has: Continuous Slow Oozing, Sudden Increased Bleeding, Increased Pain/ Swelling, Foul Smelling Discharge, Swelling at the incision site Call your doctor if you observe: Coldness, Increased Pain, Numbness or Tingling, Increased palpitations (irregular heartbeat), Calf discomfort, Uncontrolled pain Suture Line Care: Avoid Pulling/Pushing, Avoid Pinching/Bending Remove Dressing in (days):: 1 Cleanse incision/area with: Soap & Water Instructions: What Is Osteoarthritis?, Understanding Osteoarthritis, Osteoarthritis: Coping with Pain, Osteoarthritis: Managing Pain, Osteoarthritis: Injections or Surgery, Osteoarthritis: Tips for Daily Living, Osteoarthritis: Exercise, Osteoarthritis: Common Sites, Living with Osteoarthritis Allergies/Adverse Reactions: Allergies butorphanol [From Stadol] Allergy (Verified 05/29/19 11:41) Unknown ketorolac Allergy (Verified 05/29/19 11:41) Itching prochlorperazine [From Compazine] Allergy (Verified 05/29/19 11:41) Unknown sumatriptan [From Imitrex] Allergy (Verified 05/29/19 11:41) stopped breathing amoxicillin [From Augmentin] Adverse Reaction (Verified 05/29/19 11:41) Nausea/Vom/Diarrhea clavulanic acid [From Augmentin] Adverse Reaction (Verified 05/29/19 11:41) Nausea/Vom/Diarrhea pentazocine [From Talwin] Adverse Reaction (Verified 05/29/19 11:41) Vomiting Medications to take at Discharge Acetaminophen [Tylenol] 650 mg PO Q4H PRN PRN 18 Albuterol IH (ProAir) [Proair Hfa (SP)Vent Pts] 1 - 2 puff INHALATION Q6H PRN PRN 18 Albuterol Inhaler [Ventolin Hfa (SP)] 1 - 2 puff INHALATION Q4H PRN PRN 08/07/18 Alendronate Sodium [Fosamax] 70 mg PO Q7D@0700 08/07/18 Aspirin E.C. [Ecotrin] 81 mg PO DAILY@0800 08/07/18 Atorvastatin Calcium [Lipitor] 80 mg PO QHS 08/07/18 Buprenorphine 20 Mcg/Hr [Butrans 20 Mcg/Hr] 10 mcg TRANSDERM. Q7D 08/07/18 Carvedilol [Coreg] 25 mg PO BID 08/07/18 Diclofenac [Voltaren] 50 mg PO BIDCM 08/07/18 Fluticasone 0.05% [Flonase Nasal [place]] 1 spray NASAL DAILY 08/07/18 Metaxalone [Skelaxin] 800 mg PO BID 08/07/18 Multivitamins,Ther W-Minerals [Multivitamin With Minerals] 1 tablet PO DAILY 08/07/18 Nitroglycerin 0.4 mg SL PRN PRN 08/07/18 Oxybutynin Chloride [Ditropan Xl] 5 mg PO 4X/DAY 08/07/18 Potassium Chloride [K-Dur] 20 meq PO BID 08/07/18 Ranolazine [Ranexa] 500 mg PO BID 08/07/18 Senna [Senokot] 2 tablet PO DAILY PRN 08/07/18 Trazodone ER [Oleptro Er] 300 mg PO QHS 08/07/18 Ubidecarenone [Co Q-10] 30 mg PO BID 08/07/18 Valacyclovir HCl [Valtrex] 500 mg PO DAILY PRN 08/07/18 Zolpidem Tartrate [Ambien (Generic)] 5 mg PO QHS 08/07/18 metFORMIN HCl [Glucophage] 500 mg PO BIDCM 08/22/18 Magnesium 200 mg PO DAILY 10/17/18 Levofloxacin [Levaquin] 500 mg PO DAILY 03/19/19 Primary Care Physician: SNEHAL BRODERICK III [Other] Test Results: Test results from this visit will be discussed in further detail at your follow-up appointment, if applicable. Please Follow Up With: Jung Dunham MD
--- NOTE | 2019-05-29 12:49 | PCM.OPRPT ---
Problem List (1) Low back pain Status: Acute (2) Low back pain Status: Acute (3) Spondylosis of lumbar region without myelopathy or radiculopathy Status: Acute (4) Spondylosis of lumbar region without myelopathy or radiculopathy Status: Acute Report of Operation Date of Procedure: 05/29/19 Pre-Operative Diagnosis: Lumbar facet spondylosis Post-Operative Diagnosis: Same Surgery/Procedure Performed:: Left-sided lumbar facets median nerve branch block at the level of the left side L3-4 L4-5 5 S1 under fluoroscopy guidance Description of Surgical Findings:: Under sterile conditions. Patient placed in the prone position, pressure points were padded, patient was ready from the nursing and the anesthesia team. After identification of the side and the target area for the block under guided fluoroscopy, the entry site was marked with marking pen. I used Betadine for sterilization of the skin, sterile draping were applied. Using 25-gauge needle to infiltrate the skin with local anesthesia using preservative-free lidocaine 0.5% injected 2.5 mL at each site of entry. Using oblique fluoroscopy, accessed the right medial nerve branch supplying the left lumbar facets L3-4, L4-5, L5-S1 using 22-gauge spinal needle. After confirmation of appropriate needle placement to the targeted area with AP and lateral fluoroscopy, injected 2.5 mL mixture of preservative-free [place] 0.5% and Kenalog [20] mg at each site. [place] was removed, pressure dressing were applied. Patient tolerated the procedure well and was taken to the recovery. Type of Anesthesia:: MAC - Complications None
[2019-05-29] MEDS: Triamcinolone Acetonide 40 MG/ML Vial (13:36)
[2019-05-29] MEDS: Bupivacaine 0.25% 30 ML Vial (13:37)
== END 2019-05-29 15:36 | disposition home or self-care (01) ==
LOC: SDC 11:25 → AC 11:26
PROVIDERS: Referring Provider Anesthesiology; Visit Provider Anesthesiology
PROC: 3E0T3BZ Introduction of Anesthetic Agent into Peripheral Nerves and Plexi, Percutaneous Approach (ICD-10-PCS; CPT 64493; principal; 2019-05-29 11:55)
DX: M47.816 Spondylosis without myelopathy or radiculopathy, lumbar region (principal); I51.9 Heart disease, unspecified; E11.42 Type 2 diabetes mellitus with diabetic polyneuropathy; M79.7 Fibromyalgia; Z79.84 Long term (current) use of oral hypoglycemic drugs; Z79.82 Long term (current) use of aspirin; Z79.899 Other long term (current) drug therapy; Z79.891 Long term (current) use of opiate analgesic
CPT/HCPCS: 64493; 64494; 64495; 64483; 72100; 82962; J7120; A4216

== ENCOUNTER 2019-07-17 11:51 | Day surgery (SDC) | payer MEDICAID, SELFPAY ==
[2019-05-29 11:56] VITALS: BMI 36.1
[2019-07-17] VITALS (8 sets, daily range): BP systolic 102–156; BP diastolic 59–96; PULSE 65–72; RESP 16–18; TEMP 36.1–36.6; O2SAT 94–98; BMI 35.9
[2019-07-17] MEDS: Lactated Ringers 1,000 ML 100 ML IV (12:57)
[2019-07-17 13:05] LABS: Bedside Glucose 125 mg/dL (70-110)
--- NOTE | 2019-07-17 14:25 | PCM.DC ---
- Discharge Diagnoses Current Active Problems: Focal spine pain with cervical radiculopathy cervical degenerative disc disease Reason(s) for Visit for Discharge Instructions: Cervical epidural steroid injection under fluoroscopy guidance You will use the following diet at home:: No restrictions Your food should be the consistency of: Regular Discharge Activity: Return to Normal Activity, No Restrictions, May Not Drive May shower in (days): 1 May resume sexual activity in: No Restrictions Weight Bearing Status: Weight bearing as tolerated, Full weight bearing, Toe touch weight bearing Call your doctor if your incision/area has: Continuous Slow Oozing, Sudden Increased Bleeding, Increased Pain/ Swelling, Increased Redness, Foul Smelling Discharge, Swelling at the incision site Call your doctor if you observe: Fever of 101 or Higher, Coldness, Increased Pain, Numbness or Tingling, Uncontrolled pain Suture Line Care: Avoid Pulling/Pushing, Avoid Pinching/Bending Remove Dressing in (days):: 1 Cleanse incision/area with: Soap & Water Instructions: What Is Osteoarthritis?, Osteoarthritis: Coping with Pain, Osteoarthritis: Managing Pain, Osteoarthritis: Injections or Surgery Allergies/Adverse Reactions: Allergies butorphanol [From Stadol] Allergy (Verified 05/29/19 11:41) Unknown ketorolac Allergy (Verified 05/29/19 11:41) Itching prochlorperazine [From Compazine] Allergy (Verified 05/29/19 11:41) Unknown sumatriptan [From Imitrex] Allergy (Verified 05/29/19 11:41) stopped breathing amoxicillin [From Augmentin] Adverse Reaction (Verified 05/29/19 11:41) Nausea/Vom/Diarrhea clavulanic acid [From Augmentin] Adverse Reaction (Verified 05/29/19 11:41) Nausea/Vom/Diarrhea pentazocine [From Talwin] Adverse Reaction (Verified 05/29/19 11:41) Vomiting Medications to take at Discharge Acetaminophen [Tylenol] 650 mg PO Q4H PRN PRN 08/07/18 Albuterol IH (ProAir) [Proair Hfa (SP)Vent Pts] 1 - 2 puff INHALATION Q6H PRN PRN 08/07/18 Albuterol Inhaler [Ventolin Hfa (SP)] 1 - 2 puff INHALATION Q4H PRN PRN 08/07/18 Alendronate Sodium [Fosamax] 70 mg PO Q7D@0700 08/07/18 Aspirin E.C. [Ecotrin] 81 mg PO DAILY@0800 08/07/18 Atorvastatin Calcium [Lipitor] 80 mg PO QHS 08/07/18 Buprenorphine 20 Mcg/Hr [Butrans 20 Mcg/Hr] 10 mcg TRANSDERM. Q7D 08/07/18 Carvedilol [Coreg] 25 mg PO BID 08/07/18 Diclofenac [Voltaren] 50 mg PO BIDCM 08/07/18 Fluticasone 0.05% [Flonase Nasal [place]] 1 spray NASAL DAILY 08/07/18 Metaxalone [Skelaxin] 800 mg PO BID 08/07/18 Multivitamins,Ther W-Minerals [Multivitamin With Minerals] 1 tablet PO DAILY 08/07/18 Nitroglycerin 0.4 mg SL PRN PRN 08/07/18 Oxybutynin Chloride [Ditropan Xl] 5 mg PO 4X/DAY 08/07/18 Potassium Chloride [K-Dur] 20 meq PO BID 08/07/18 Ranolazine [Ranexa] 500 mg PO BID 08/07/18 Senna [Senokot] 2 tablet PO DAILY PRN 08/07/18 Trazodone ER [Oleptro Er] 300 mg PO QHS 08/07/18 Ubidecarenone [Co Q-10] 30 mg PO BID 08/07/18 Valacyclovir HCl [Valtrex] 500 mg PO DAILY PRN 08/07/18 Zolpidem Tartrate [Ambien (Generic)] 5 mg PO QHS 08/07/18 metFORMIN HCl [Glucophage] 500 mg PO BIDCM 08/22/18 Magnesium 200 mg PO DAILY 10/17/18 Venlafaxine XR [Effexor Xr] 150 mg PO BID 07/17/19 Primary Care Physician: SNEHAL BRODERICK III [Other] Test Results: Test results from this visit will be discussed in further detail at your follow-up appointment, if applicable. Please Follow Up With: Jung Dunham MD
--- NOTE | 2019-07-17 14:28 | PCM.OPRPT ---
Problem List (1) Other cervical disc degeneration, mid-cervical region, unspecified level Status: Acute (2) Other cervical disc degeneration, mid-cervical region, unspecified level Status: Acute (3) Radiculopathy of cervical region Status: Acute (4) Radiculopathy of cervical region Status: Acute (5) Cervical disc disorder with radiculopathy of mid-cervical region Status: Acute (6) Cervical disc disorder with radiculopathy of mid-cervical region Status: Acute (7) Cervicalgia Status: Acute (8) Cervicalgia Status: Acute Report of Operation Date of Procedure: 07/17/19 Pre-Operative Diagnosis: Cervical degenerative disc disease, cervical disc disorders with cervical radiculopathy Post-Operative Diagnosis: Same Surgery/Procedure Performed:: Cervical epidural steroid injection under fluoroscopy guidance at the level of the C6-7 Description of Surgical Findings:: Under sterile conditions. Patient placed in the prone position, pressure points were padded, patient was ready from the nursing and the anesthesia team. After identification of the side and the target area for the block under guided fluoroscopy, the entry site at the posterior cervical epidural area at C6-7 was marked with marking pen. I used Betadine for sterilization of the skin, sterile draping were applied. Using 25-gauge needle to infiltrate the skin with local anesthesia using preservative-free lidocaine 0.5% injected 2.5 mL at site of entry. Using guided fluoroscopy, accessed the the posterior cervical epidural space using 20-gauge Touhy needles under midline approach, accessed the site was assisted with lateral fluoroscopy, followed by using [id number] technique using preservative-free normal saline, negative aspiration of CSF and blood. Injected contrast solution [1.5] mL under live fluoroscopy which showed good spread of the contrast to the posterior epidural space and to the targeted area of the injection at posterior cervical epidural space at the level of [ C6-7]. Injected [3] mL of mixture of preservative-free lidocaine and Kenalog [80] mg for the procedure which showed appropriate spread in the posterior cervical epidural space. [place] was removed, pressure dressing were applied. Patient tolerated the procedure well and was taken to the recovery. Type of Anesthesia:: Local MAC - Maintain light local local anesthesia infiltration under MAC at the time of infiltration of the skin, with verbal conscious communication with the patient at the time of access of the epidural space, Local Estimated Blood Loss (mL): None - Complications None
[2019-07-17] MEDS: Triamcinolone Acetonide 40 MG/ML Vial (14:50)
--- NOTE | 2019-07-17 14:50 | RAD_ITS ---
STUDY: CERVICAL EPIDURAL. REASON FOR EXAM: Female, 68 years old. Neck pain. FLUOROSCOPY TIME (if supplied): ( 72.3 seconds ) minutes/seconds. 2 images were obtained. TECHNIQUE: Fluoroscopic services provided for C6-C7 epidural block. COMPARISON: None. FINDINGS: Fluoroscopic services provided for C6-C7 epidural block. RAD/Spine 1 View Any Level IMPRESSION: Fluoroscopic services provided for C6-C7 epidural block. Electronically Signed: Surendra Ferrell, at 8:20 EST , Service support ,
== END 2019-07-17 16:13 | disposition home or self-care (01) ==
LOC: SDC 11:51 → AC 11:53
PROVIDERS: Referring Provider Anesthesiology; Visit Provider Anesthesiology
PROC: 3E0S3BZ Introduction of Anesthetic Agent into Epidural Space, Percutaneous Approach (ICD-10-PCS; CPT 62320; principal; 2019-07-17 13:25)
DX: M50.123 Cervical disc disorder at C6-C7 level with radiculopathy (principal); M50.320 Other cervical disc degeneration, mid-cervical region, unspecified level; I25.2 Old myocardial infarction; I10 Essential (primary) hypertension; J44.9 Chronic obstructive pulmonary disease, unspecified; E78.00 Pure hypercholesterolemia, unspecified; F32.9 Major depressive disorder, single episode, unspecified; F41.9 Anxiety disorder, unspecified; E11.42 Type 2 diabetes mellitus with diabetic polyneuropathy; Z95.810 Presence of automatic (implantable) cardiac defibrillator; Z79.84 Long term (current) use of oral hypoglycemic drugs; Z79.82 Long term (current) use of aspirin; Z79.891 Long term (current) use of opiate analgesic; Z79.899 Other long term (current) drug therapy; Z87.891 Personal history of nicotine dependence
CPT/HCPCS: 01922; 62321; 64490; 72020; 82962; J7120; A4216

== ENCOUNTER → 2019-09-11 11:58 | Outpatient (CLI) | payer MEDICAID, SELFPAY ==
[2019-07-17 12:32] VITALS: BMI 35.9
[2019-09-11 13:40] LABS: Amphetamine Urine VISTA NEGATIVE (<1000 ng/mL); Barbiturate Urine VISTA NEGATIVE (< 200 ng/mL); Benzodiazepine Urine VISTA NEGATIVE (< 200 ng/mL); Cocaine Urine VISTA NEGATIVE (< 300 ng/mL); Ecstacy Urine VISTA POSITIVE (< 500 ng/mL); Methadone Urine VISTA NEGATIVE (< 300 ng/mL); PCP Urine VISTA NEGATIVE (< 25 ng/mL); THC Urine VISTA NEGATIVE (< 50 ng/mL); Vista UDS pH Range 5
== END ==
PROVIDERS: Referring Provider Anesthesiology; Visit Provider Anesthesiology
DX: F11.20 Opioid dependence, uncomplicated (principal)
CPT/HCPCS: 80307

== ENCOUNTER 2019-10-23 14:38 | Day surgery (SDC) | payer MEDICAID, SELFPAY ==
[2019-07-17 12:32] VITALS: BMI 35.9
[2019-10-23] VITALS (8 sets, daily range): BP systolic 130–151; BP diastolic 84–98; PULSE 60–68; RESP 16–18; TEMP 36.3–36.5; O2SAT 94–99; BMI 35.4
[2019-10-23] MEDS: Lactated Ringers 1,000 ML 100 ML IV (15:30)
[2019-10-23 15:36] LABS: Bedside Glucose 108 mg/dL (70-110)
--- NOTE | 2019-10-23 15:40 | RAD_ITS ---
Fluoroscopy for ankle injection INDICATION: Left ankle injection TECHNIQUE: 4 fluoroscopic images provided for interpretation. 9 seconds of fluoroscopy time reported. FINDINGS: Initial image demonstrates a needle projecting over the medial tibiotalar articulation. There is subsequent injection of contrast not conforming to the confines of the tibiotalar joint. Final image shows a needle projecting over the talus-fibular articulation with amorphous contrast. RAD/Fluoro Guided Needle Placement IMPRESSION: Fluoroscopic guidance for orthopedic joint infection. Uncertain position of needles based on provided images. Electronically Signed: Maninder Taylor MD ([place]) at 18:55 EST , Service support ,
[2019-10-23] MEDS: Triamcinolone Acetonide 40 MG/ML Vial (15:58)
[2019-10-23] MEDS: Bupivacaine 0.25% 30 ML Vial (15:58)
--- NOTE | 2019-10-23 16:02 | PCM.DC ---
- Discharge Diagnoses Current Active Problems: Left ankle foot pain and difficulty walking You will use the following diet at home:: No restrictions Your food should be the consistency of: Regular Discharge Activity: Return to Normal Activity May shower in (days): 1 May resume sexual activity in: No Restrictions Weight Bearing Status: Weight bearing as tolerated, Partial weight bearing Call your doctor if your incision/area has: Continuous Slow Oozing, Sudden Increased Bleeding, Increased Pain/ Swelling, Increased Redness, Foul Smelling Discharge, Swelling at the incision site Call your doctor if you observe: Fever of 101 or Higher, Coldness, Increased Pain Suture Line Care: Avoid Pulling/Pushing, Avoid Pinching/Bending Remove Dressing in (days):: 1 Cleanse incision/area with: Soap & Water Allergies/Adverse Reactions: Allergies butorphanol [From Stadol] Allergy (Verified 05/29/19 11:41) Unknown ketorolac Allergy (Verified 05/29/19 11:41) Itching prochlorperazine [From Compazine] Allergy (Verified 05/29/19 11:41) Unknown sumatriptan [From Imitrex] Allergy (Verified 05/29/19 11:41) stopped breathing amoxicillin [From Augmentin] Adverse Reaction (Verified 05/29/19 11:41) Nausea/Vom/Diarrhea clavulanic acid [From Augmentin] Adverse Reaction (Verified 05/29/19 11:41) Nausea/Vom/Diarrhea pentazocine [From Talwin] Adverse Reaction (Verified 05/29/19 11:41) Vomiting Medications to take at Discharge Acetaminophen [Tylenol] 650 mg PO Q4H PRN PRN 08/07/18 Albuterol IH (ProAir) [Proair Hfa (SP)Vent Pts] 1 - 2 puff INHALATION Q6H PRN PRN 08/07/18 Albuterol Inhaler [Ventolin Hfa (SP)] 1 - 2 puff INHALATION Q4H PRN PRN 18 Alendronate Sodium [Fosamax] 70 mg PO Q7D@0700 08/07/18 Aspirin E.C. [Ecotrin] 81 mg PO DAILY@0800 08/07/18 Atorvastatin Calcium [Lipitor] 80 mg PO QHS 08/07/18 Buprenorphine 20 Mcg/Hr [Butrans 20 Mcg/Hr] 10 mcg TRANSDERM. Q7D 08/07/18 Carvedilol [Coreg] 25 mg PO BID 08/07/18 Diclofenac [Voltaren] 50 mg PO BIDCM 08/07/18 Fluticasone 0.05% [Flonase Nasal [place]] 1 spray NASAL DAILY 08/07/18 Multivitamins,Ther W-Minerals [Multivitamin With Minerals ([facility])] 1 tablet PO DAILY 08/07/18 Nitroglycerin 0.4 mg SL PRN PRN 08/07/18 Oxybutynin Chloride [Ditropan Xl] 5 mg PO 4X/DAY 08/07/18 Potassium Chloride [K-Dur] 20 meq PO BID 08/07/18 Ranolazine [Ranexa] 500 mg PO BID 08/07/18 Trazodone ER [Oleptro Er] 300 mg PO QHS 08/07/18 Ubidecarenone [Co Q-10] 30 mg PO BID 08/07/18 Valacyclovir HCl [Valtrex] 500 mg PO DAILY PRN 08/07/18 Zolpidem Tartrate [Ambien (Generic)] 5 mg PO QHS 08/07/18 metFORMIN HCl [Glucophage] 500 mg PO BIDCM 08/22/18 Magnesium 200 mg PO DAILY 10/17/18 Venlafaxine XR [Effexor Xr] 150 mg PO BID 07/17/19 Loratadine 10 mg PO DAILY 10/23/19 Primary Care Physician: THUAN ALVARADO [Other] Test Results: Test results from this visit will be discussed in further detail at your follow-up appointment, if applicable. Please Follow Up With: Jung Dunham MD
--- NOTE | 2019-10-23 16:05 | PCM.OPRPT ---
Problem List (1) Arthralgia of ankle or foot, left Status: Acute (2) Arthralgia of ankle or foot, left Status: Acute (3) Pain in left ankle and joints of left foot Status: Acute (4) Pain in left ankle and joints of left foot Status: Acute (5) Primary osteoarthritis, left ankle and foot Status: Acute (6) Primary osteoarthritis, left ankle and foot Status: Acute Report of Operation Date of Procedure: 10/23/19 Pre-Operative Diagnosis: Left ankle foot pain and left ankle arthritis and difficulty walking Post-Operative Diagnosis: Same Surgery/Procedure Performed:: Left ankle joint steroid injection under fluoroscopy guidance Description of Surgical Findings:: Under sterile conditions. Patient placed in the supine position, pressure points were padded, patient was ready from the nursing and the anesthesia team. After identification of the side and the target area for the block under guided fluoroscopy, the entry site at the medial and lateral of the interior of the left ankle joint was marked with marking pen. I used Betadine for sterilization of the skin, sterile draping were applied. Using 25-gauge needle to infiltrate the skin with local anesthesia using preservative-free lidocaine 0.5% injected 2.5 mL at each site of entry. Using oblique fluoroscopy, accessed the medial and lateral aspect of the left ankle joint, intra-articular placement using 23-gauge spinal needle. After confirmation of appropriate needle placement to the targeted area with AP and lateral fluoroscopy, injected 2.5 mL mixture of preservative-free Marcaine 0.5% and Kenalog at each medial and lateral part and injected [40] mg at each site. Total of 80 mg used for the procedure [place] was removed, pressure dressing were applied. Patient tolerated the procedure well and was taken to the recovery. Type of Anesthesia:: Local MAC - Complications None Patient tolerated the procedure well
== END 2019-10-23 17:00 | disposition home or self-care (01) ==
LOC: SDC 14:38 → AC 14:41
PROVIDERS: Referring Provider Anesthesiology; Visit Provider Anesthesiology
PROC: 3E0U3GC Introduction of Other Therapeutic Substance into Joints, Percutaneous Approach (ICD-10-PCS; CPT 20610; principal; 2019-10-23 15:25)
DX: M19.072 Primary osteoarthritis, left ankle and foot (principal); M25.572 Pain in left ankle and joints of left foot; R26.2 Difficulty in walking, not elsewhere classified; J45.909 Unspecified asthma, uncomplicated; G25.81 Restless legs syndrome; K74.69 Other cirrhosis of liver; E11.9 Type 2 diabetes mellitus without complications; F41.9 Anxiety disorder, unspecified; F32.9 Major depressive disorder, single episode, unspecified; I10 Essential (primary) hypertension; I25.2 Old myocardial infarction; M54.2 Cervicalgia; M54.5 Low back pain; Z87.891 Personal history of nicotine dependence; Z86.711 Personal history of pulmonary embolism; Z86.718 Personal history of other venous thrombosis and embolism; Z79.899 Other long term (current) drug therapy; Z79.84 Long term (current) use of oral hypoglycemic drugs; Z79.82 Long term (current) use of aspirin; Z95.0 Presence of cardiac pacemaker; M79.7 Fibromyalgia
CPT/HCPCS: 20610; 76000; 77002; 82962; J7120; A4216

== ENCOUNTER 2019-11-06 13:56 | Day surgery (SDC) | payer MEDICAID, SELFPAY ==
[2019-10-23 15:09] VITALS: BMI 35.4
[2019-11-06] VITALS (8 sets, daily range): BP systolic 111–175; BP diastolic 73–98; PULSE 69–77; RESP 16–20; TEMP 36.1–36.2; O2SAT 95–99; BMI 35.1
[2019-11-06 14:31] LABS: Bedside Glucose 100 mg/dL (70-110)
[2019-11-06] MEDS: Lactated Ringers 1,000 ML 100 ML IV (14:36)
--- NOTE | 2019-11-06 15:45 | RAD_ITS ---
STUDY: X-RAY -fluoroscopically guided epidural block REASON FOR EXAM: Female, 69 years old. BLOCK, EPIDURAL, L4-L5 TECHNIQUE: Fluoroscopic guidance was provided for operative procedure of report dated epidural block at L4-L5. FINDINGS: Fluoroscopic guidance was provided for operative procedure of epidural block. The radiologist was not present in the room. 3 images obtained with the fluoroscope revealing localization needle near the interspinous process level L4-L5 . RAD/Spine 1 View Any Level IMPRESSION: Fluoroscopically guided epidural block. For details please see operative report. Electronically Signed: Marcela Colvin MD at 0:25 EST , Service support ,
--- NOTE | 2019-11-06 16:16 | PCM.DC ---
- Discharge Diagnoses Current Active Problems: l lower back pain exacerbation due to lumbar degenerative disc disease and lumbar radiculopathy Reason(s) for Visit for Discharge Instructions: Receiving lumbar epidural steroid injection at the level of the L4-5 under fluoroscopy guidance Discharge Activity: Return to Normal Activity May shower in (days): 1 May resume sexual activity in: No Restrictions Weight Bearing Status: Weight bearing as tolerated Call your doctor if your incision/area has: Continuous Slow Oozing, Sudden Increased Bleeding, Increased Pain/ Swelling, Increased Redness, Foul Smelling Discharge, Swelling at the incision site Call your doctor if you observe: Fever of 101 or Higher, Coldness, Increased Pain, Uncontrolled pain Cleanse incision/area with: Soap & Water Allergies/Adverse Reactions: Allergies butorphanol [From Stadol] Allergy (Verified 11/06/19 14:17) Unknown ketorolac Allergy (Verified 11/06/19 14:17) Itching prochlorperazine [From Compazine] Allergy (Verified 11/06/19 14:17) Unknown sumatriptan [From Imitrex] Allergy (Verified 11/06/19 14:17) stopped breathing amoxicillin [From Augmentin] Adverse Reaction (Verified 11/06/19 14:17) Nausea/Vom/Diarrhea clavulanic acid [From Augmentin] Adverse Reaction (Verified 11/06/19 14:17) Nausea/Vom/Diarrhea pentazocine [From Talwin] Adverse Reaction (Verified 11/06/19 14:17) Vomiting Medications to take at Discharge Acetaminophen [Tylenol] 650 mg PO Q4H PRN PRN 08/07/18 Albuterol IH (ProAir) [Proair Hfa (SP)Vent Pts] 1 - 2 puff INHALATION Q6H PRN PRN 08/07/18 Albuterol Inhaler [Ventolin Hfa (SP)] 1 - 2 puff INHALATION Q4H PRN PRN 08/07/18 Alendronate Sodium [Fosamax] 70 mg PO Q7D@0700 08/07/18 Aspirin E.C. [Ecotrin] 81 mg PO DAILY@0800 08/07/18 Atorvastatin Calcium [Lipitor] 80 mg PO QHS 08/07/18 Buprenorphine 20 Mcg/Hr [Butrans 20 Mcg/Hr] 10 mcg TRANSDERM. Q7D 08/07/18 Carvedilol [Coreg] 25 mg PO BID 08/07/18 Diclofenac [Voltaren] 50 mg PO BIDCM 08/07/18 Fluticasone 0.05% [Flonase Nasal [place]] 1 spray NASAL DAILY 08/07/18 Multivitamins,Ther W-Minerals [Multivitamin With Minerals ([facility])] 1 tablet PO DAILY 08/07/18 Nitroglycerin 0.4 mg SL PRN PRN 08/07/18 Oxybutynin Chloride [Ditropan Xl] 5 mg PO 4X/DAY 08/07/18 Potassium Chloride [K-Dur] 20 meq PO BID 08/07/18 Ranolazine [Ranexa] 500 mg PO BID 08/07/18 Trazodone ER [Oleptro Er] 300 mg PO QHS 08/07/18 Ubidecarenone [Co Q-10] 30 mg PO BID 08/07/18 Valacyclovir HCl [Valtrex] 500 mg PO DAILY PRN 08/07/18 Zolpidem Tartrate [Ambien (Generic)] 5 mg PO QHS 08/07/18 metFORMIN HCl [Glucophage] 500 mg PO BIDCM 08/22/18 Magnesium 200 mg PO DAILY 10/17/18 Venlafaxine XR [Effexor Xr] 150 mg PO BID 07/17/19 Loratadine 10 mg PO DAILY 10/23/19 Acetaminophen/Codeine #3 [Tylenol #3 Tablet] 1 tab PO TID 11/06/19 traZODone [Desyrel] 25 mg PO BID 11/06/19 Primary Care Physician: THUAN ALVARADO [Other] Test Results: Test results from this visit will be discussed in further detail at your follow-up appointment, if applicable. Please Follow Up With: Jung Dunham MD
--- NOTE | 2019-11-06 16:18 | OP.PCM_ITS ---
Problem List (1) Intervertebral disc disorder with radiculopathy of lumbar region Status: Acute (2) Intervertebral disc disorder with radiculopathy of lumbar region Status: Acute (3) Acute exacerbation of chronic low back pain Status: Chronic (4) Acute exacerbation of chronic low back pain Status: Chronic (5) Acute low back pain due to spinal disorder Status: Acute (6) Acute low back pain due to spinal disorder Status: Acute (7) Low back pain Status: Acute (8) Low back pain Status: Acute Report of Operation Date of Procedure: 11/06/19 Pre-Operative Diagnosis: Lumbar disc displacement, lumbar disc degenerative joint disc disease, lumbar radiculopathy Post-Operative Diagnosis: Same Surgery/Procedure Performed:: Lumbar epidural steroid injection at the level of the L4-5 under fluoroscopy guidance Description of Surgical Findings:: Under sterile conditions. Patient placed in the prone position, pressure points were padded, patient was ready from the nursing and the anesthesia team. After identification of the side and the target area for the block under guided fluoroscopy, the entry site was marked with marking pen. I used Betadine for sterilization of the skin, sterile draping were applied. Using 25-gauge needle to infiltrate the skin with local anesthesia using preservative-free lidocaine 0.5% injected 2.5 mL at site of entry. Using guided fluoroscopy, accessed the the posterior epidural space using 18- gauge Touhy needles under midline approach, accessed the site was assisted with lateral fluoroscopy, followed by using [id number] technique using preservative-free normal saline, negative aspiration of CSF and blood. Injected contrast solution [2.5] mL under live fluoroscopy which showed good spread of the contrast to the posterior epidural space and to the targeted area of the injection at[ L4-5]. Injected [5] mL of mixture of preservative-free lidocaine and Kenalog [80] mg for the procedure which showed appropriate spread in the epidural space. [place] was removed, pressure dressing were applied. Patient tolerated the procedure well and was taken to the recovery. Type of Anesthesia:: Local MAC - Complications No complication
== END 2019-11-06 17:47 | disposition home or self-care (01) ==
LOC: SDC 13:56 → AC 13:59
PROVIDERS: Referring Provider Anesthesiology; Visit Provider Anesthesiology
PROC: 3E0S3BZ Introduction of Anesthetic Agent into Epidural Space, Percutaneous Approach (ICD-10-PCS; CPT 62322; principal; 2019-11-06 15:40)
DX: M51.16 Intervertebral disc disorders with radiculopathy, lumbar region (principal); G89.29 Other chronic pain; I50.9 Heart failure, unspecified; I11.0 Hypertensive heart disease with heart failure; I25.2 Old myocardial infarction; J44.9 Chronic obstructive pulmonary disease, unspecified; G25.81 Restless legs syndrome; E78.00 Pure hypercholesterolemia, unspecified; F41.9 Anxiety disorder, unspecified; F32.9 Major depressive disorder, single episode, unspecified; Z79.899 Other long term (current) drug therapy; Z79.82 Long term (current) use of aspirin; Z79.84 Long term (current) use of oral hypoglycemic drugs; Z95.810 Presence of automatic (implantable) cardiac defibrillator; Z87.891 Personal history of nicotine dependence; Z86.711 Personal history of pulmonary embolism; Z86.718 Personal history of other venous thrombosis and embolism; K21.9 Gastro-esophageal reflux disease without esophagitis; M79.7 Fibromyalgia; E11.42 Type 2 diabetes mellitus with diabetic polyneuropathy
CPT/HCPCS: 01992; 62323; 64483; 72020; 82962; J7120; A4216

== ENCOUNTER → 2020-01-29 17:26 | Outpatient (CLI) | payer MEDICAID, SELFPAY ==
[2019-11-06 14:28] VITALS: BMI 35.1
[2020-01-29 18:44] LABS: Amphetamine Urine VISTA NEGATIVE (<1000 ng/mL); Barbiturate Urine VISTA NEGATIVE (< 200 ng/mL); Benzodiazepine Urine VISTA NEGATIVE (< 200 ng/mL); Cocaine Urine VISTA NEGATIVE (< 300 ng/mL); Ecstacy Urine VISTA POSITIVE (< 500 ng/mL); Methadone Urine VISTA NEGATIVE (< 300 ng/mL); PCP Urine VISTA NEGATIVE (< 25 ng/mL); THC Urine VISTA NEGATIVE (< 50 ng/mL); Vista UDS pH Range 6
== END ==
PROVIDERS: Referring Provider Anesthesiology; Visit Provider Anesthesiology
DX: F11.20 Opioid dependence, uncomplicated (principal)
CPT/HCPCS: 80307

== ENCOUNTER 2020-05-20 11:59 | Day surgery (SDC) | payer MEDICAID, SELFPAY ==
[2019-11-06 14:28] VITALS: BMI 35.1
[2020-05-20] VITALS (7 sets, daily range): BP systolic 155–171; BP diastolic 81–94; PULSE 60–72; RESP 16–18; TEMP 36.1–36.7; O2SAT 94–100; BMI 36.7
[2020-05-20 13:10] LABS: Bedside Glucose 119 mg/dL (70-110)
[2020-05-20] MEDS: Lactated Ringers 1,000 ML 100 ML IV (13:19)
--- NOTE | 2020-05-20 13:39 | DCINST_ITS ---
- Discharge Diagnoses Current Active Problems: Patient complaining lower back pain, mostly around the right gluteal region You will use the following diet at home:: No restrictions Your food should be the consistency of: Regular Discharge Activity: Return to Normal Activity May shower in (days): 1 Weight Bearing Status: Weight bearing as tolerated Call your doctor if your incision/area has: Continuous Slow Oozing, Sudden Increased Bleeding, Increased Pain/ Swelling, Increased Redness, Foul Smelling Discharge, Swelling at the incision site Call your doctor if you observe: Fever of 101 or Higher, Coldness, Increased Pain, Numbness or Tingling, Uncontrolled pain Suture Line Care: Avoid Pulling/Pushing, Avoid Pinching/Bending Remove Dressing in (days):: 1 Allergies/Adverse Reactions: Allergies butorphanol [From Stadol] Allergy (Verified 05/20/20 12:47) Unknown ketorolac Allergy (Verified 05/20/20 12:47) Itching prochlorperazine [From Compazine] Allergy (Verified 05/20/20 12:47) Unknown sumatriptan [From Imitrex] Allergy (Verified 05/20/20 12:47) stopped breathing amoxicillin [From Augmentin] Adverse Reaction (Verified 05/20/20 12:47) Nausea/Vom/Diarrhea clavulanic acid [From Augmentin] Adverse Reaction (Verified 05/20/20 12:47) Nausea/Vom/Diarrhea pentazocine [From Talwin] Adverse Reaction (Verified 05/20/20 12:47) Vomiting Medications to take at Discharge Acetaminophen [Tylenol] 650 mg PO Q4H PRN PRN 08/07/18 Albuterol IH (ProAir) [Proair Hfa (SP)Vent Pts] 1 - 2 puff INHALATION Q6H PRN PRN 08/07/18 Albuterol Inhaler [Ventolin Hfa (SP)] 1 - 2 puff INHALATION Q4H PRN PRN 08/07/18 Alendronate Sodium [Fosamax] 70 mg PO Q7D@0700 08/07/18 Aspirin E.C. [Ecotrin] 81 mg PO DAILY@0800 08/07/18 Atorvastatin Calcium [Lipitor] 80 mg PO QHS 08/07/18 Buprenorphine 20 Mcg/Hr [Butrans 20 Mcg/Hr] 10 mcg TRANSDERM. Q7D 08/07/18 Carvedilol [Coreg] 25 mg PO BID 08/07/18 Diclofenac [Voltaren] 50 mg PO BIDCM 08/07/18 Fluticasone 0.05% [Flonase Nasal [place]] 1 spray NASAL DAILY 08/07/18 Multivitamins,Ther W-Minerals [Multivitamin With Minerals ([facility])] 1 tablet PO DAILY 08/07/18 Nitroglycerin 0.4 mg SL PRN PRN 08/07/18 Oxybutynin Chloride [Ditropan Xl] 5 mg PO 4X/DAY 08/07/18 Potassium Chloride [K-Dur] 20 meq PO BID 08/07/18 Ranolazine [Ranexa] 500 mg PO BID 08/07/18 Trazodone ER [Oleptro Er] 300 mg PO QHS 08/07/18 Ubidecarenone [Co Q-10] 30 mg PO BID 08/07/18 Valacyclovir HCl [Valtrex] 500 mg PO DAILY PRN 08/07/18 Zolpidem Tartrate [Ambien (Generic)] 5 mg PO QHS 08/07/18 metFORMIN HCl [Glucophage] 500 mg PO BIDCM 08/22/18 Magnesium 200 mg PO DAILY 10/17/18 Venlafaxine XR [Effexor Xr] 150 mg PO BID 07/17/19 Loratadine 10 mg PO DAILY 10/23/19 Acetaminophen/Codeine #3 [Tylenol #3 Tablet] 1 tab PO TID 11/06/19 traZODone [Desyrel] 25 mg PO BID 11/06/19 Primary Care Physician: THUAN ALVARADO [Other] Test Results: Test results from this visit will be discussed in further detail at your follow- up appointment, if applicable.
--- NOTE | 2020-05-20 13:41 | PCM.OPRPT ---
Problem List (1) Sacroiliitis, not elsewhere classified Status: Acute (2) Inflammation of left sacroiliac joint Status: Acute (3) Sacroiliitis Status: Acute (4) Low back pain Status: Acute Qualifiers: Qualified Code(s): M54.5 - Low back pain Comment: Patient has trigger point at the right pyriformis muscle region, proceed with right piriformis muscle injection Report of Operation Date of Procedure: 05/20/20 Pre-Operative Diagnosis: Right sacroiliitis, as above noted, right piriformis muscle pain Post-Operative Diagnosis: Same Surgery/Procedure Performed:: Right sacroiliac joint injection, right piriformis muscle injection under fluoroscopy guidance Description of Surgical Findings:: Under sterile conditions. Patient placed in the prone position, pressure points were padded, patient was ready from the nursing and the anesthesia team. After identification of the side and the target area for the block under guided fluoroscopy, the entry site was marked with marking pen. I used Betadine for sterilization of the skin, sterile draping were applied. The entry site identified after fluoroscopy oblique today at 15 degrees and to the left 15 degrees to align the sacroiliac joint on the right, identified the entry point at the lower third of the right sacroiliac joint as well as straighten a T2 over the right piriformis, landmark anatomy identified, injected after identified with needle introduction to the right piriformis, noted the distribution of right pyriformis between the sacroiliac and the right lesser trochanteric bursa. Using 25-gauge needle to infiltrate the skin with local anesthesia using preservative-free lidocaine 0.5% injected 2.5 mL at each site of entry. Using oblique fluoroscopy, accessed the right sacroiliac joint, as well as the right piriformis using 22-gauge spinal needle. After confirmation of appropriate needle placement to the targeted area with AP and lateral fluoroscopy, I have injected contrast showed distribution of the right sacroiliac joint and right piriformis, followed by injected 10 total mL mixture of preservative-free Marcaine 0.5% and Kenalog [80] mg at site of the injection as noted above [place] was removed, pressure dressing were applied. Patient tolerated the procedure well and was taken to the recovery. Type of Anesthesia:: Local MAC
--- NOTE | 2020-05-20 13:50 | RAD_ITS ---
STUDY: X-RAY - SACROILIAC JOINTS REASON FOR EXAM: Female, 69 years old. Right sacroiliac joint. Piriformis injection TECHNIQUE: 2 intraoperative view(s) of the sacroiliac joints were obtained. COMPARISON: None. FINDINGS: Intraoperative imaging provided for right pyriformis injection. RAD/Fluoro Guided Needle Placement IMPRESSION: Intraoperative imaging provided for right piriformis injection. Electronically Signed: Surendra Ferrell, at 14:32 EDT , Service support ,
[2020-05-20] MEDS: Bupivacaine 0.25% 30 ML Vial (13:55)
[2020-05-20] MEDS: Triamcinolone Acetonide 40 MG/ML Vial (13:55)
== END 2020-05-20 15:46 | disposition home or self-care (01) ==
LOC: SDC 11:59 → AC 12:01
PROVIDERS: Referring Provider Anesthesiology; Visit Provider Anesthesiology
PROC: 3E0U3GC Introduction of Other Therapeutic Substance into Joints, Percutaneous Approach (ICD-10-PCS; CPT 27096; principal; 2020-05-20 13:25)
DX: M46.1 Sacroiliitis, not elsewhere classified (principal); M79.10 Myalgia, unspecified site; Z79.899 Other long term (current) drug therapy; Z87.891 Personal history of nicotine dependence; J44.9 Chronic obstructive pulmonary disease, unspecified; G25.81 Restless legs syndrome; Z79.82 Long term (current) use of aspirin; Z79.84 Long term (current) use of oral hypoglycemic drugs; I25.2 Old myocardial infarction; I10 Essential (primary) hypertension; Z86.711 Personal history of pulmonary embolism; Z86.718 Personal history of other venous thrombosis and embolism; F41.9 Anxiety disorder, unspecified; F32.9 Major depressive disorder, single episode, unspecified
CPT/HCPCS: 01992; 20552; 27096; 76000; 77002; 82962; J7120; A4216

== ENCOUNTER 2020-07-22 12:26 | Day surgery (SDC) | payer MEDICAID, SELFPAY ==
[2020-05-20 13:03] VITALS: BMI 36.7
[2020-07-22] VITALS (7 sets, daily range): BP systolic 118–152; BP diastolic 72–107; PULSE 65–88; RESP 16–18; TEMP 36.3–36.9; O2SAT 94–96; BMI 34.8
[2020-07-22] MEDS: Lactated Ringers 1,000 ML 100 ML IV (13:22)
--- NOTE | 2020-07-22 13:42 | RAD_ITS ---
PROCEDURE: Left SI joint injection DATE OF EXAMINATION: 07/22/2020 INDICATION: Female, 69 years old. 68 PHYSICIAN: Dr. Dunham FLUOROSCOPY TIME (if supplied): ( 0 ) minutes/seconds RADIATION DOSAGE (If Supplied By Facility): CTDIvol = ( ) mGy, DLP = ( ) mGycm CONSENT: The risks, benefits and alternatives to the procedure were explained to the patient, and the patient agreed to the procedure and signed the consent. SEDATION: STERILE BARRIER TECHNIQUE: The following sterile barrier precautions were used during the procedure: hand hygiene; use of 2% chlorhexidine aseptic; use of a cap, mask, sterile gown, sterile gloves, sterile full body drape, and a large sterile sheet. PROCEDURE/TECHNIQUE: (All elements of maximal sterile barrier technique followed, including US elements as applicable) The risks, benefits, and alternatives to the procedure were explained to patient, and the patient agreed to the procedure and signed a consent form for the procedure. A timeout was performed to confirm the patient''s identity, the type of procedure, to be performed and the site of entry. RAD/Fluoro Guided Needle Placement IMPRESSION: 4 fluoroscopic images were performed during this left sacroiliac joint injection. Electronically Signed: Blane Chaudhry, at 9:17 EST Tel , Service support ,
--- NOTE | 2020-07-22 13:44 | PCM.DC ---
- Discharge Diagnoses Current Active Problems: Bilateral lower gluteal and sacroiliac joint pain Reason(s) for Visit for Discharge Instructions: Patient has left-sided sacroiliac joint injection left piriformis muscle injection under fluoroscopy guidance You will use the following diet at home:: No restrictions Your food should be the consistency of: Regular Discharge Activity: Return to Normal Activity, No Restrictions, May Not Drive, May not drive while taking narcotic pain medications., May Shower, Use Walker Return to work on:: 07/25/20 May shower in (days): 1 May resume sexual activity in: No Restrictions Weight Bearing Status: Weight bearing as tolerated Call your doctor if your incision/area has: Continuous Slow Oozing, Sudden Increased Bleeding, Increased Pain/ Swelling, Increased Redness, Foul Smelling Discharge, Swelling at the incision site Call your doctor if you observe: Fever of 101 or Higher, Coldness, Increased Pain, Numbness or Tingling, Calf discomfort Suture Line Care: Avoid Pulling/Pushing, Avoid Pinching/Bending Remove Dressing in (days):: 1 Cleanse incision/area with: Soap & Water Allergies/Adverse Reactions: Allergies butorphanol [From Stadol] Allergy (Verified 07/22/20 12:54) Unknown ketorolac Allergy (Verified 07/22/20 12:54) Itching prochlorperazine [From Compazine] Allergy (Verified 07/22/20 12:54) Unknown sumatriptan [From Imitrex] Allergy (Verified 07/22/20 12:54) stopped breathing amoxicillin [From Augmentin] Adverse Reaction (Verified 07/22/20 12:54) Nausea/Vom/Diarrhea clavulanic acid [From Augmentin] Adverse Reaction (Verified 07/22/20 12:54) Nausea/Vom/Diarrhea pentazocine [From Talwin] Adverse Reaction (Verified 07/22/20 12:54) Vomiting Medications to take at Discharge Acetaminophen [Tylenol] 650 mg PO Q4H PRN PRN 08/07/18 Albuterol IH (ProAir) [Proair Hfa (SP)Vent Pts] 1 - 2 puff INHALATION Q6H PRN PRN 08/07/18 Albuterol Inhaler [Ventolin Hfa (SP)] 1 - 2 puff INHALATION Q4H PRN PRN 08/07/18 Alendronate Sodium [Fosamax] 70 mg PO Q7D@0700 08/07/18 Aspirin E.C. [Ecotrin] 81 mg PO DAILY@0800 08/07/18 Atorvastatin Calcium [Lipitor] 80 mg PO QHS 08/07/18 Buprenorphine 20 Mcg/Hr [Butrans 20 Mcg/Hr] 10 mcg TRANSDERM. Q7D 08/07/18 Carvedilol [Coreg] 25 mg PO BID 08/07/18 Diclofenac [Voltaren] 50 mg PO BIDCM 08/07/18 Fluticasone 0.05% [Flonase Nasal [place]] 1 spray NASAL DAILY 08/07/18 Multivitamins,Ther W-Minerals [Multivitamin With Minerals ([facility])] 1 tablet PO DAILY 08/07/18 Nitroglycerin 0.4 mg SL PRN PRN 08/07/18 Oxybutynin Chloride [Ditropan Xl] 5 mg PO 4X/DAY 08/07/18 Potassium Chloride [K-Dur] 20 meq PO BID 08/07/18 Ranolazine [Ranexa] 500 mg PO BID 08/07/18 Trazodone ER [Oleptro Er] 300 mg PO QHS 08/07/18 Ubidecarenone [Co Q-10] 30 mg PO BID 08/07/18 Valacyclovir HCl [Valtrex] 500 mg PO DAILY PRN 08/07/18 Zolpidem Tartrate [Ambien (Generic)] 5 mg PO QHS 08/07/18 metFORMIN HCl [Glucophage] 500 mg PO BIDCM 08/22/18 Magnesium 200 mg PO DAILY 10/17/18 Venlafaxine XR [Effexor Xr] 150 mg PO BID 07/17/19 Loratadine 10 mg PO DAILY 10/23/19 Acetaminophen/Codeine #3 [Tylenol #3 Tablet] 1 tab PO TID 11/06/19 traZODone [Desyrel] 25 mg PO BID 11/06/19 Lisinopril 2.5 mg PO DAILY 07/22/20 Primary Care Physician: THUAN ALVARADO [Other] Test Results: Test results from this visit will be discussed in further detail at your follow-up appointment, if applicable. Please Follow Up With: Jung Dunham MD
[2020-07-22] MEDS: Lidocaine 1% (20 ml mdv) 20 ML Vial (13:49)
[2020-07-22] MEDS: Triamcinolone Acetonide 40 MG/ML Vial (13:49)
[2020-07-22] MEDS: Bupivacaine 0.25% 30 ML Vial (13:49)
--- NOTE | 2020-07-22 13:59 | OP.PCM_ITS ---
Problem List (1) Sacroiliitis Status: Acute (2) Sacroiliitis, not elsewhere classified Status: Acute (3) Spasm of piriformis muscle Status: Acute (4) Spasm of piriformis muscle Status: Acute Report of Operation Date of Procedure: 07/22/20 Pre-Operative Diagnosis: Sacroiliitis, piriformis muscle syndrome Post-Operative Diagnosis: Sacroiliitis, piriformis muscle pain Surgery/Procedure Performed:: Left-sided sacroiliac joint injection and left piriformis muscle injection under fluoroscopy guidance Description of Surgical Findings:: Under sterile conditions. Patient placed in the prone position, pressure points were padded, patient was ready from the nursing and the anesthesia team. After identification of the side and the target area for the block under guided fluoroscopy, the entry site at the left sacroiliac joint, and at the left piriformis muscle, was marked with marking pen. Fluoroscopy directed oblique right-sided deviation angled to align the sacroiliac joint at 1 line I used Betadine for sterilization of the skin, sterile draping were applied. Using 25-gauge needle to infiltrate the skin with local anesthesia using preservative-free lidocaine 0.5% injected 2.5 mL at each site of entry, accessed the lower third of the left sacroiliac joint Using oblique fluoroscopy, accessed the left sacroiliac joint and left piriformis muscle using 22-gauge spinal needle. After confirmation of appropriate needle placement to the targeted area with AP and lateral fluoroscopy, injected 10 mL mixture of preservative-free Marcaine 0.5% and Kenalog [40] mg at each site. [place] was removed, pressure dressing were applied. Patient tolerated the procedure well and was taken to the recovery. Type of Anesthesia:: Local MAC - Complications No complication
[2020-07-22 15:06] LABS: Bedside Glucose 100 mg/dL (70-110)
== END 2020-07-22 16:04 | disposition home or self-care (01) ==
LOC: SDC 12:26 → AC 12:27
PROVIDERS: Referring Provider Anesthesiology; Visit Provider Anesthesiology
PROC: 3E0U3GC Introduction of Other Therapeutic Substance into Joints, Percutaneous Approach (ICD-10-PCS; CPT 27096; principal; 2020-07-22 13:15)
DX: M46.1 Sacroiliitis, not elsewhere classified (principal); M62.838 Other muscle spasm; I10 Essential (primary) hypertension; G47.30 Sleep apnea, unspecified; J44.9 Chronic obstructive pulmonary disease, unspecified; G25.81 Restless legs syndrome; K74.69 Other cirrhosis of liver; E11.9 Type 2 diabetes mellitus without complications; F41.9 Anxiety disorder, unspecified; F32.9 Major depressive disorder, single episode, unspecified; Z79.899 Other long term (current) drug therapy; Z79.82 Long term (current) use of aspirin; Z79.84 Long term (current) use of oral hypoglycemic drugs; Z95.810 Presence of automatic (implantable) cardiac defibrillator; Z86.711 Personal history of pulmonary embolism; Z86.718 Personal history of other venous thrombosis and embolism
CPT/HCPCS: 01992; 20552; 27096; 76000; 77002; 82962; J7120; A4216

== ENCOUNTER → 2020-09-09 17:33 | Outpatient (CLI) | payer MEDICAID, SELFPAY ==
[2020-07-22 13:08] VITALS: BMI 34.8
--- NOTE | 2020-09-09 17:47 | RAD_ITS ---
HISTORY: weakness and pain in foot and ankle COMPARISON: None FINDINGS: # of images incl. paperwork: 3 XR Ankle Min 3 Views : No fracture or osseous abnormality. The ankle mortise is intact. Soft tissue swelling is present circumferentially about the ankle, greater medially than laterally. RAD/Ankle min 3 Views IMPRESSION: Soft tissue swelling about the ankle greater medially than laterally without underlying fracture perceived to the Left ankle at [id number] Reported and signed by: Kevin Casey MD Electronically Signed: Kevin Casey MD at 5:25 EST Tel , Service support ,
--- NOTE | 2020-09-09 17:50 | RAD_ITS ---
HISTORY: weakness and pain in foot and ankle Technique: Left foot AP, lateral, and oblique radiographs Comparison: None available Findings: No acute fracture or dislocation. Decreased bone mineral density is suspected. Calcaneal spurring. No focal abnormality or radiopaque foreign body is seen in the surrounding soft tissues. RAD/Foot min 3 Views IMPRESSION: No acute osseous abnormality identified in the foot. at [id number] Reported and signed by: Kevin Casey MD Electronically Signed: Kevin Casey MD at 5:23 EST Tel , Service support ,
== END ==
PROVIDERS: Referring Provider Anesthesiology; Visit Provider Anesthesiology
DX: M25.572 Pain in left ankle and joints of left foot (principal)
CPT/HCPCS: 73610; 73630

== ENCOUNTER → 2020-11-18 17:12 | Outpatient (CLI) | payer MEDICAID, SELFPAY ==
[2020-07-22 13:08] VITALS: BMI 34.8
[2020-11-18 18:16] LABS: Amphetamine Urine VISTA NEGATIVE (<1000 ng/mL); Barbiturate Urine VISTA NEGATIVE (< 200 ng/mL); Benzodiazepine Urine VISTA NEGATIVE (< 200 ng/mL); Cocaine Urine VISTA NEGATIVE (< 300 ng/mL); Ecstacy Urine VISTA POSITIVE (< 500 ng/mL); Methadone Urine VISTA NEGATIVE (< 300 ng/mL); PCP Urine VISTA NEGATIVE (< 25 ng/mL); THC Urine VISTA NEGATIVE (< 50 ng/mL); Vista UDS pH Range 6
[2020-11-18 18:27] LABS: BUP Internal Control LINE = VALID (VALID); Buprenorphine Drug Screen Positive (<10 ng/mL)
== END ==
PROVIDERS: Referring Provider Anesthesiology; Visit Provider Anesthesiology
DX: F11.20 Opioid dependence, uncomplicated (principal)
CPT/HCPCS: 80307

== ENCOUNTER 2020-12-02 12:25 | Day surgery (SDC) | payer MEDICAID, SELFPAY ==
[2020-07-22 13:08] VITALS: BMI 34.8
[2020-12-02] VITALS (9 sets, daily range): BP systolic 111–155; BP diastolic 61–99; PULSE 57–69; RESP 16–18; TEMP 36.3–36.7; O2SAT 92–99; BMI 36.6
[2020-12-02 12:56] LABS: Bedside Glucose 135 mg/dL (70-110)
[2020-12-02] MEDS: Lactated Ringers 1,000 ML 100 ML IV (13:15)
--- NOTE | 2020-12-02 13:48 | RAD_ITS ---
STUDY: X-RAY - LUMBAR SPINE REASON FOR EXAM: Female, 70 years old. BLOCK,LUMBAR FACET L3-4,L4-5,L5-S1,LEFT TECHNIQUE: 5 C-arm views of the lumbar spine were obtained. COMPARISON: None FINDINGS: 5 C-arm views show placement of needles in positions compatible with left-sided facets as above. Correlate with procedure note. Electronically Signed: Yassine Glover MD at 16:56 EDT , Service support , RAD/Lumbar Spine 2 or 3 Views
[2020-12-02] MEDS: Bupivacaine 0.25% 30 ML Vial (14:07)
[2020-12-02] MEDS: Lidocaine 1% (30 ml sdv) 30 ML Vial (14:07)
[2020-12-02] MEDS: Triamcinolone Acetonide 40 MG/ML Vial (14:07)
--- NOTE | 2020-12-02 14:16 | DCINST_ITS ---
- Discharge Diagnoses Current Active Problems: Lumbar spine pain and lumbar spondylosis Reason(s) for Visit for Discharge Instructions: Receiving left-sided lumbar facet injection under fluoroscopy guidance You will use the following diet at home:: No restrictions Your food should be the consistency of: Regular Discharge Activity: Return to Normal Activity, No Restrictions Return to work on:: 12/01/20 May shower in (days): 1 May resume sexual activity in: No Restrictions Weight Bearing Status: Weight bearing as tolerated Call your doctor if you observe: Coldness, Increased Pain, Numbness or Tingling, Calf discomfort, Uncontrolled pain Suture Line Care: Avoid Pulling/Pushing, Avoid Pinching/Bending Change Dressing in (Days):: 1 Remove Dressing in (days):: 1 Cleanse incision/area with: Soap & Water, Keep Dressing Clean & Dry Instructions: What Is Osteoarthritis? Allergies/Adverse Reactions: Allergies butorphanol [From Stadol] Allergy (Verified 12/02/20 13:20) Unknown ketorolac Allergy (Verified 12/02/20 13:20) Itching prochlorperazine [From Compazine] Allergy (Verified 12/02/20 13:20) Unknown sumatriptan [From Imitrex] Allergy (Verified 12/02/20 13:20) stopped breathing amoxicillin [From Augmentin] Adverse Reaction (Verified 12/02/20 13:20) Nausea/Vom/Diarrhea clavulanic acid [From Augmentin] Adverse Reaction (Verified 12/02/20 13:20) Nausea/Vom/Diarrhea pentazocine [From Talwin] Adverse Reaction (Verified 12/02/20 13:20) Vomiting Medications to take at Discharge Acetaminophen [Tylenol] 650 mg PO Q4H PRN PRN 08/07/18 Albuterol IH (ProAir) [Proair Hfa (SP)Vent Pts] 1 - 2 puff INHALATION Q6H PRN PRN 08/07/18 Albuterol Inhaler [Ventolin Hfa (SP)] 1 - 2 puff INHALATION Q4H PRN PRN 08/07/18 Alendronate Sodium [Fosamax] 70 mg PO Q7D@0700 08/07/18 Aspirin E.C. [Ecotrin] 81 mg PO DAILY@0800 08/07/18 Atorvastatin Calcium [Lipitor] 80 mg PO QHS 08/07/18 Buprenorphine 20 Mcg/Hr [Butrans 20 Mcg/Hr] 10 mcg TRANSDERM. Q7D 08/07/18 Carvedilol [Coreg] 25 mg PO BID 08/07/18 Diclofenac [Voltaren] 50 mg PO BIDCM 08/07/18 Fluticasone 0.05% [Flonase Nasal [place]] 1 spray NASAL DAILY 08/07/18 Multivitamins,Ther W-Minerals [Multivitamin With Minerals ([facility])] 1 tablet PO DAILY 08/07/18 Nitroglycerin 0.4 mg SL PRN PRN 08/07/18 Oxybutynin Chloride [Ditropan Xl] 5 mg PO 4X/DAY 08/07/18 Potassium Chloride Oral Tablet [K-Dur] 20 meq PO BID 08/07/18 Ranolazine [Ranexa] 500 mg PO BID 08/07/18 Trazodone ER [Oleptro Er] 300 mg PO QHS 08/07/18 Ubidecarenone [Co Q-10] 30 mg PO BID 08/07/18 Valacyclovir HCl [Valtrex] 500 mg PO DAILY PRN 08/07/18 Zolpidem Tartrate [Ambien (Generic)] 5 mg PO QHS 08/07/18 metFORMIN HCl [Glucophage] 500 mg PO BIDCM 08/22/18 Magnesium 200 mg PO DAILY 10/17/18 Venlafaxine XR [Effexor Xr] 150 mg PO BID 07/17/19 Loratadine 10 mg PO DAILY 10/23/19 Acetaminophen/Codeine #3 [Tylenol #3 Tablet] 1 tab PO TID 11/06/19 traZODone [Desyrel] 25 mg PO BID 11/06/19 Lisinopril 2.5 mg PO DAILY 07/22/20 Primary Care Physician: THUAN ALVARADO [Other] Test Results: Test results from this visit will be discussed in further detail at your follow- up appointment, if applicable. Please Follow Up With: Jung Dunham MD
--- NOTE | 2020-12-02 14:18 | PCM.OPRPT ---
Problem List (1) Acute exacerbation of chronic low back pain Status: Chronic (2) Acute exacerbation of chronic low back pain Status: Chronic (3) Acute low back pain due to spinal disorder Status: Acute (4) Acute low back pain due to spinal disorder Status: Acute (5) Low back pain Status: Acute (6) Low back pain Status: Acute Qualifiers: Comment: Patient has trigger point at the right pyriformis muscle region, proceed with right piriformis muscle injection (7) Spondylosis of lumbar region without myelopathy or radiculopathy Status: Acute (8) Spondylosis of lumbar region without myelopathy or radiculopathy Status: Acute Report of Operation Date of Procedure: 12/02/20 Pre-Operative Diagnosis: Lumbar facet spondylosis Post-Operative Diagnosis: Same Surgery/Procedure Performed:: Left-sided lumbar facets median nerve branch block at the level of the left side L3-4, L4-5, L5-S1 under fluoroscopy guidance Description of Surgical Findings:: Under sterile conditions. Patient placed in the prone position, pressure points were padded, patient was ready from the nursing and the anesthesia team. After identification of the side and the target area for the block under guided fluoroscopy, the entry site was marked with marking pen. I used Betadine for sterilization of the skin, sterile draping were applied. Using 25-gauge needle to infiltrate the skin with local anesthesia using preservative-free lidocaine 0.5% injected 2.5 mL at each site of entry. Using oblique fluoroscopy, accessed the left medial nerve branch supplying the left lumbar facets L3-4, L4-5, L5-S1 using 22-gauge spinal needle. After confirmation of appropriate needle placement to the targeted area with AP and lateral fluoroscopy, injected 2.5 mL mixture of preservative-free Marcaine 0.5% and Kenalog [10] mg at each site. [place] was removed, pressure dressing were applied. Patient tolerated the procedure well and was taken to the recovery. Type of Anesthesia:: Local MAC Estimated Blood Loss (mL): None Description of Procedure: See above - Complications No complication
== END 2020-12-02 16:11 | disposition home or self-care (01) ==
LOC: SDC 12:27 → AC 12:27
PROVIDERS: Referring Provider Anesthesiology; Visit Provider Anesthesiology
PROC: 3E0T3BZ Introduction of Anesthetic Agent into Peripheral Nerves and Plexi, Percutaneous Approach (ICD-10-PCS; CPT 64493; principal; 2020-12-02 13:40)
DX: M47.896 Other spondylosis, lumbar region (principal); G89.29 Other chronic pain; I25.2 Old myocardial infarction; I11.0 Hypertensive heart disease with heart failure; I50.9 Heart failure, unspecified; J44.9 Chronic obstructive pulmonary disease, unspecified; G47.30 Sleep apnea, unspecified; G25.81 Restless legs syndrome; E78.00 Pure hypercholesterolemia, unspecified; F41.9 Anxiety disorder, unspecified; F32.9 Major depressive disorder, single episode, unspecified; K21.9 Gastro-esophageal reflux disease without esophagitis; G43.909 Migraine, unspecified, not intractable, without status migrainosus; E11.42 Type 2 diabetes mellitus with diabetic polyneuropathy; Z79.899 Other long term (current) drug therapy; Z86.718 Personal history of other venous thrombosis and embolism; Z79.84 Long term (current) use of oral hypoglycemic drugs; Z79.51 Long term (current) use of inhaled steroids
CPT/HCPCS: 01992; 64493; 64494; 64495; 64483; 72100; 82962; J7120; A4216

== ENCOUNTER 2020-12-23 11:14 | Day surgery (SDC) | payer MEDICAID, SELFPAY ==
[2020-07-22 13:08] VITALS: BMI 34.8
[2020-12-02 13:06] VITALS: BMI 36.6
[2020-12-23] VITALS (10 sets, daily range): BP systolic 101–121; BP diastolic 69–92; PULSE 59–90; RESP 16; TEMP 36.3–36.6; O2SAT 96–100; BMI 36.7
[2020-12-23] MEDS: Lactated Ringers 1,000 ML 100 ML IV (12:44)
--- NOTE | 2020-12-23 13:04 | SUR.PREOP ---
dr goode's office called concerning the xarlato and he is ok with pt not stopping for procedure
[2020-12-23 13:16] LABS: Bedside Glucose 96 mg/dL (70-110)
--- NOTE | 2020-12-23 13:30 | RAD_ITS ---
STUDY: X-RAY - SACROILIAC JOINTS REASON FOR EXAM: Female, 70 years old. Injection into sacroiliac joint. TECHNIQUE: 2 intraprocedural digital documentation view(s) of the sacroiliac joints were obtained. COMPARISON: None. FINDINGS: 2 intraoperative digital documentation images show contrast adjacent to the SI joints. RAD/Fluoro Guided Needle Placement IMPRESSION: Intraprocedural digital documentation images. Electronically Signed: Andrew Hudson MD at 15:02 EDT , Service support ,
--- NOTE | 2020-12-23 13:39 | DCINST_ITS ---
You will use the following diet at home:: No restrictions Your food should be the consistency of: Regular Discharge Activity: Return to Normal Activity, No Restrictions Return to work on:: 12/26/20 May shower in (days): 1 May resume sexual activity in: No Restrictions Weight Bearing Status: Weight bearing as tolerated Call your doctor if your incision/area has: Continuous Slow Oozing, Sudden Increased Bleeding, Increased Pain/ Swelling, Foul Smelling Discharge, Swelling at the incision site Call your doctor if you observe: Fever of 101 or Higher, Coldness, Increased Pain, Calf discomfort, Uncontrolled pain Suture Line Care: Avoid Pulling/Pushing, Avoid Pinching/Bending Remove Dressing in (days):: 1 Cleanse incision/area with: Soap & Water Instructions: What Is Osteoarthritis?, Osteoarthritis: Coping with Pain Allergies/Adverse Reactions: Allergies butorphanol [From Stadol] Allergy (Verified 12/23/20 12:27) Unknown ketorolac Allergy (Verified 12/23/20 12:27) Itching prochlorperazine [From Compazine] Allergy (Verified 12/23/20 12:27) Unknown sumatriptan [From Imitrex] Allergy (Verified 12/23/20 12:27) stopped breathing amoxicillin [From Augmentin] Adverse Reaction (Verified 12/23/20 12:27) Nausea/Vom/Diarrhea clavulanic acid [From Augmentin] Adverse Reaction (Verified 12/23/20 12:27) Nausea/Vom/Diarrhea pentazocine [From Talwin] Adverse Reaction (Verified 12/23/20 12:27) Vomiting Medications to take at Discharge Acetaminophen [Tylenol] 650 mg PO Q4H PRN PRN 08/07/18 Albuterol IH (ProAir) [Proair Hfa (SP)Vent Pts] 1 - 2 puff INHALATION Q6H PRN PRN 08/07/18 Albuterol Inhaler [Ventolin Hfa (SP)] 1 - 2 puff INHALATION Q4H PRN PRN 08/07/18 Alendronate Sodium [Fosamax] 70 mg PO Q7D@0700 08/07/18 Atorvastatin Calcium [Lipitor] 80 mg PO QHS 08/07/18 Buprenorphine 20 Mcg/Hr [Butrans 20 Mcg/Hr] 10 mcg TRANSDERM. Q7D 08/07/18 Carvedilol [Coreg] 25 mg PO BID 08/07/18 Diclofenac [Voltaren] 50 mg PO BIDCM 08/07/18 Fluticasone 0.05% [Flonase Nasal [place]] 1 spray NASAL DAILY 08/07/18 Multivitamins,Ther W-Minerals [Multivitamin With Minerals ([facility])] 1 tablet PO DAILY 08/07/18 Nitroglycerin 0.4 mg SL PRN PRN 08/07/18 Oxybutynin Chloride [Ditropan Xl] 5 mg PO 4X/DAY 08/07/18 Potassium Chloride Oral Tablet [K-Dur] 20 meq PO BID 08/07/18 Ranolazine [Ranexa] 500 mg PO BID 08/07/18 Trazodone ER [Oleptro Er] 300 mg PO QHS 08/07/18 Ubidecarenone [Co Q-10] 30 mg PO BID 08/07/18 Valacyclovir HCl [Valtrex] 500 mg PO DAILY PRN 08/07/18 Zolpidem Tartrate [Ambien (Generic)] 5 mg PO QHS 08/07/18 metFORMIN HCl [Glucophage] 500 mg PO BIDCM 08/22/18 Magnesium 200 mg PO DAILY 10/17/18 Venlafaxine XR [Effexor Xr] 150 mg PO BID 07/17/19 Loratadine 10 mg PO DAILY 10/23/19 Acetaminophen/Codeine #3 [Tylenol #3 Tablet] 1 tab PO TID 11/06/19 traZODone [Desyrel] 25 mg PO BID 11/06/19 Lisinopril 2.5 mg PO DAILY 07/22/20 Rivaroxaban [Xarelto] 15 mg PO DAILY 12/23/20 Primary Care Physician: THUAN ALVARADO [Other] Test Results: Test results from this visit will be discussed in further detail at your follow- up appointment, if applicable. Please Follow Up With: Jung Dunham MD
--- NOTE | 2020-12-23 13:41 | OP.PCM_ITS ---
Problem List (1) Acute low back pain due to spinal disorder Status: Acute (2) Low back pain Status: Acute (3) Spondylosis of lumbar region without myelopathy or radiculopathy Status: Acute Report of Operation Date of Procedure: 12/23/20 Pre-Operative Diagnosis: Lumbar facet spondylosis Post-Operative Diagnosis: Lumbar facet spondylosis Surgery/Procedure Performed:: Right-sided lumbar facet median nerve branch block at the level of the right L3-4, L4-5, L5-S1 facet medial nerve branch region under fluoroscopy guidance Description of Surgical Findings:: Under sterile conditions. Patient placed in the prone position, pressure points were padded, patient was ready from the nursing and the anesthesia team. After identification of the side and the target area for the block under guided fluoroscopy, the entry site was marked with marking pen. I used Betadine for sterilization of the skin, sterile draping were applied. Using 25-gauge needle to infiltrate the skin with local anesthesia using preservative-free lidocaine 0.5% injected 2.5 mL at each site of entry. Using oblique fluoroscopy, accessed the right medial nerve branch supplying the [right] lumbar facets L3-4, L4-5, L5-S1 using 22-gauge spinal needle. After confirmation of appropriate needle placement to the targeted area with AP and lateral fluoroscopy, injected 2.5 mL mixture of preservative-free Marcaine 0.5% and Kenalog [10] mg at each site. [place] was removed, pressure dressing were applied. Patient tolerated the procedure well and was taken to the recovery. Type of Anesthesia:: Local MAC - Complications No complication
--- NOTE | 2020-12-23 13:57 | PCM.OPRPT ---
Problem List (1) Acute low back pain due to spinal disorder Status: Acute (2) Low back pain Status: Acute Qualifiers: Chronicity: acute Sciatica presence: with sciatica Sciatica laterality: sciatica of left side (3) Sacroiliitis Status: Acute (4) Spasm of piriformis muscle Status: Acute Report of Operation Date of Procedure: 12/23/20 Pre-Operative Diagnosis: Left sacroiliitis and left piriformis muscle spasm and pain Post-Operative Diagnosis: Postop diagnosis same Surgery/Procedure Performed:: Left-sided sacroiliac joint injection under fluoroscopy guidance, left piriformis muscle injection under fluoroscopy guidance. Description of Surgical Findings:: Under sterile conditions. Patient placed in the prone position, pressure points were padded, patient was ready from the nursing and the anesthesia team. After identification of the side and the target area for the block under guided fluoroscopy, the entry site at the left sacroiliac joint, at the lower third of the joint, with oblique fluoroscopy, and the entry site at the left piriformis muscle using AP fluoroscopy and surface anatomy marking Wws marked with marking pen. I used Betadine for sterilization of the skin, sterile draping were applied. Using 25-gauge needle to infiltrate the skin with local anesthesia using preservative-free lidocaine 0.5% injected 5 mL at each site of entry. Using oblique fluoroscopy, accessed the left sacroiliac joint and left piriformis muscle using 22-gauge spinal needle. After confirmation of appropriate needle placement to the targeted area with AP and lateral fluoroscopy, injected contrast dye to confirm spread through the posterior and through the margin of the sacroiliac joint, also spread across the anterior surface, also spread across the piriformis muscle distribution, injected 5 mL mixture of preservative-free Marcaine 0.5% and Kenalog [20] mg at each site of the left sacroiliac joint and left piriformis muscle. [place] was removed, pressure dressing were applied. Patient tolerated the procedure well and was taken to the recovery. Type of Anesthesia:: Local MAC - Complications No complication
[2020-12-23] MEDS: Bupivacaine 0.25% 30 ML Vial (14:04)
[2020-12-23] MEDS: Lidocaine 1% (30 ml sdv) 30 ML Vial (14:04)
[2020-12-23] MEDS: Triamcinolone Acetonide 40 MG/ML Vial (14:04)
--- NOTE | 2020-12-23 14:14 | PCM.HP.STD ---
Problem List (1) Acute low back pain due to spinal disorder Status: Acute (2) Low back pain Status: Acute Qualifiers: Chronicity: acute Sciatica presence: with sciatica Sciatica laterality: sciatica of left side (3) Sacroiliitis Status: Acute (4) Spasm of piriformis muscle Status: Acute History of Present Illness Date of Admission: 12/23/20 The patient is a 70 year old F who is presenting today for lower back pain management, correction of the original H&P, patient is coming today for left sacroiliac joint injection left piriformis, exam showed increasing pain across the back, also she has pain on the right lower back but today is elected to proceed with the original order of the left sacroiliac joint, left piriformis muscle injection. Addendum made for adding this new H&P to replace the original H&P handwritten by the office. [] Past Medical History Past Medical History (Chronic Problems): Chronic Problems Acute exacerbation of chronic low back pain (Chronic) Acute exacerbation of chronic low back pain (Chronic) Allergies butorphanol [From Stadol] Allergy (Verified 12/23/20 12:27) Unknown ketorolac Allergy (Verified 12/23/20 12:27) Itching prochlorperazine [From Compazine] Allergy (Verified 12/23/20 12:27) Unknown sumatriptan [From Imitrex] Allergy (Verified 12/23/20 12:27) stopped breathing amoxicillin [From Augmentin] Adverse Reaction (Verified 12/23/20 12:27) Nausea/Vom/Diarrhea clavulanic acid [From Augmentin] Adverse Reaction (Verified 12/23/20 12:27) Nausea/Vom/Diarrhea pentazocine [From Talwin] Adverse Reaction (Verified 12/23/20 12:27) Vomiting Home Medications: Ambulatory Orders Medication Instructions Recorded Acetaminophen [Tylenol] 650 mg PO Q4H PRN PRN 08/07/18 Albuterol IH (ProAir) [Proair Hfa 1 - 2 puff INHALATION Q6H PRN PRN 08/07/18 (SP)Vent Pts] Albuterol Inhaler [Ventolin Hfa 1 - 2 puff INHALATION Q4H PRN PRN 08/07/18 (SP)] Alendronate Sodium [Fosamax] 70 mg PO Q7D@0700 08/07/18 Atorvastatin Calcium [Lipitor] 80 mg PO QHS 08/07/18 Buprenorphine 20 Mcg/Hr [Butrans 10 mcg TRANSDERM. Q7D 08/07/18 20 Mcg/Hr] Carvedilol [Coreg] 25 mg PO BID 08/07/18 Diclofenac [Voltaren] 50 mg PO BIDCM 08/07/18 Fluticasone 0.05% [Flonase Nasal 1 spray NASAL DAILY 08/07/18 [place]] Multivitamins,Ther W-Minerals 1 tablet PO DAILY 08/07/18 [Multivitamin With Minerals ([facility])] Nitroglycerin 0.4 mg SL PRN PRN 08/07/18 Oxybutynin Chloride [Ditropan Xl] 5 mg PO 4X/DAY 08/07/18 Potassium Chloride Oral Tablet 20 meq PO BID 08/07/18 [K-Dur] Ranolazine [Ranexa] 500 mg PO BID 08/07/18 Trazodone ER [Oleptro Er] 300 mg PO QHS 08/07/18 Ubidecarenone [Co Q-10] 30 mg PO BID 08/07/18 Valacyclovir HCl [Valtrex] 500 mg PO DAILY PRN 08/07/18 Zolpidem Tartrate [Ambien 5 mg PO QHS 08/07/18 (Generic)] metFORMIN HCl [Glucophage] 500 mg PO BIDCM 08/22/18 Magnesium 200 mg PO DAILY 10/17/18 Venlafaxine XR [Effexor Xr] 150 mg PO BID 07/17/19 Loratadine 10 mg PO DAILY 10/23/19 Acetaminophen/Codeine #3 [Tylenol 1 tab PO TID 11/06/19 #3 Tablet] traZODone [Desyrel] 25 mg PO BID 11/06/19 Lisinopril 2.5 mg PO DAILY 07/22/20 Rivaroxaban [Xarelto] 15 mg PO DAILY 12/23/20 Smoking Status: Current some day smoker Review of Systems Musculoskeletal: Reports: Back Pain - Review of system positive for tenderness across the lower back, patient has tenderness over the left sacroiliac left piriformis as well as the left lower gluteal and also has pain across the right lower back. VTE Information - Inpt Only VTE Present on Admission: No VTE Mechan Device Prophylaxis: None - No need for prophylaxis, VTE Pharm Prophylaxis ordered?: No Reason prophylaxis not ordered:: Procedure Not Indicated Patient Problems: Active and Suspected Problems Spasm of piriformis muscle (Acute) Sacroiliitis (Acute) Acute low back pain due to spinal disorder (Acute) Low back pain (Acute) - Physical Exam Vitals/I&O's: Vital Signs Temp Pulse Resp BP Pulse Ox 97.4 F L 76 16 117/73 98 12/23/20 12:33 12/23/20 12:33 12/23/20 12:33 12/23/20 12:33 12/23/20 12:33 Oxygen Delivery Method Room Air Weight: 85.4 kg Body Mass Index (BMI) 36.7 General: Alert, Oriented x3, Cooperative HEENT: Atraumatic Neck: Supple Lungs: Clear to auscultation Cardiovascular: Regular rate, Regular Rhythm Abdomen: Bowel Sounds Present, Soft, Non Tender Extremities: No clubbing, No cyanosis Skin: No rashes Musculoskeletal: Tenderness Lymphatic: No Cervical, Supraclavicular, or Inguinal Adenopathy Neurological: Cranial nerves II-XII grossly intact, Motor Exam 5/5 strength throughout, Muscle tone normal, Coordination normal, Gait narrow based and stable Psych/Mental Status: Normal Affect, Anxious Laboratory Results 12/23/20 12:19: POC Glucose 96 Current Medications Lactated Ringer's () 1,000 mls @ 100 mls/hr IV .Q10H [facility] Last Admin: 12/23/20 12:44 Dose: 100 mls/hr Documented by: Assessment/Plan All Active Problems Piriformis muscle pain (Acute) Piriformis muscle pain (Acute) Spasm of piriformis muscle (Acute) Spasm of piriformis muscle (Acute) Bilateral sacroiliitis (Acute) Bilateral sacroiliitis (Acute) Arthralgia of ankle or foot, left (Acute) Arthralgia of ankle or foot, left (Acute) Pain in left ankle and joints of left foot (Acute) Pain in left ankle and joints of left foot (Acute) Primary osteoarthritis, left ankle and foot (Acute) Primary osteoarthritis, left ankle and foot (Acute) Intervertebral disc disorder with radiculopathy of lumbar region (Acute) Intervertebral disc disorder with radiculopathy of lumbar region (Acute) Other cervical disc degeneration, mid-cervical region, unspecified level (Acute) Other cervical disc degeneration, mid-cervical region, unspecified level (Acute) Radiculopathy of cervical region (Acute) Radiculopathy of cervical region (Acute) Cervical disc disorder with radiculopathy of mid-cervical region (Acute) Cervical disc disorder with radiculopathy of mid-cervical region (Acute) Cervicalgia (Acute) Cervicalgia (Acute) Sacroiliitis, not elsewhere classified (Acute) Inflammation of left sacroiliac joint (Acute) Sacroiliitis (Acute) Acute low back pain due to spinal disorder (Acute) Acute low back pain due to spinal disorder (Acute) Low back pain (Acute) Low back pain (Acute) Spondylosis of lumbar region without myelopathy or radiculopathy (Acute) Spondylosis of lumbar region without myelopathy or radiculopathy (Acute) Patient will have left sacroiliac joint and left piriformis muscle injection This corrected H&P to replace the original H&P handwritten from the office and signed earlier by me. Patient will proceed with original procedure on the schedule left sacroiliac joint left piriformis muscle and will reschedule for the right lumbar facet block for next appointment after patient seen in the office on January 13, 2021
[2020-12-23] MEDS: Morphine 2 MG/ML Syringe IV (14:40)
== END 2020-12-23 16:17 | disposition home or self-care (01) ==
LOC: SDC 11:15 → AC 11:54
PROVIDERS: Referring Provider Anesthesiology; Visit Provider Anesthesiology
PROC: 3E0U3GC Introduction of Other Therapeutic Substance into Joints, Percutaneous Approach (ICD-10-PCS; CPT 27096; principal; 2020-12-23 13:25)
DX: M46.1 Sacroiliitis, not elsewhere classified (principal); M51.16 Intervertebral disc disorders with radiculopathy, lumbar region; M62.838 Other muscle spasm; E11.9 Type 2 diabetes mellitus without complications; M47.26 Other spondylosis with radiculopathy, lumbar region; K21.9 Gastro-esophageal reflux disease without esophagitis; G43.909 Migraine, unspecified, not intractable, without status migrainosus; I50.9 Heart failure, unspecified; I11.0 Hypertensive heart disease with heart failure; J44.9 Chronic obstructive pulmonary disease, unspecified; F17.200 Nicotine dependence, unspecified, uncomplicated; G25.81 Restless legs syndrome; E78.00 Pure hypercholesterolemia, unspecified; Z86.718 Personal history of other venous thrombosis and embolism; Z79.899 Other long term (current) drug therapy; Z79.84 Long term (current) use of oral hypoglycemic drugs; Z79.01 Long term (current) use of anticoagulants; Z95.810 Presence of automatic (implantable) cardiac defibrillator; Z86.711 Personal history of pulmonary embolism; M19.072 Primary osteoarthritis, left ankle and foot
CPT/HCPCS: 01992; 20552; 27096; 76000; 77002; 82962; J7120; A4216; J2405

== ENCOUNTER 2021-04-07 12:29 | Day surgery (SDC) | payer MEDICAID, SELFPAY ==
[2020-12-23 12:33] VITALS: BMI 36.7
[2021-04-07] VITALS (12 sets, daily range): BP systolic 122–152; BP diastolic 64–89; PULSE 60–69; RESP 16; TEMP 36–36.2; O2SAT 93–98; BMI 36.7
[2021-04-07] MEDS: Lactated Ringers 1,000 ML 100 ML IV (12:40)
[2021-04-07 13:26] LABS: Bedside Glucose 113 mg/dL (70-110)
--- NOTE | 2021-04-07 13:30 | RAD_ITS ---
PROCEDURE: Right SI joint and right piriformis muscle injection. DATE OF EXAMINATION: 04/07/2021. INDICATION: Female, 70 years old. Right pelvic pain. FLUOROSCOPY TIME (if supplied): (13 seconds) minutes/seconds. 2 images were obtained. RAD/Fluoro Guided Needle Placement IMPRESSION: Intraoperative imaging provided for right SI joint and piriformis muscle injection. Electronically Signed: Surendra Ferrell MD at 10:36 EDT , Service support ,
--- NOTE | 2021-04-07 13:37 | PCM.DC ---
Discharge Instructions Diet Discharge Diet: No restrictions Activity May resume sexual activity in: No Restrictions Weight Bearing Status: Weight bearing as tolerated Dressing / Incision Call your doctor if your incision/area has: Continuous Slow Oozing, Sudden Increased Bleeding, Increased Pain/ Swelling, Increased Redness, Foul Smelling Discharge and Swelling at the incision site Call your doctor if you observe: Fever of 101 or Higher, Coldness, Increased Pain, Numbness or Tingling, Change in Color, Inability to urinate, Inability to have a bowel movement, Increased palpitations (irregular heartbeat), Calf discomfort and Uncontrolled pain Suture Line Care: Avoid Pulling/Pushing and Avoid Pinching/Bending Change Dressing in: 1 day Remove Dressing in: 1 day Cleanse incision/area with: Soap & Water and Keep Dressing Clean & Dry Follow Up Care Please Follow Up With: Jung Dunham MD When: 2 to 4-week Test Results: Test results from this visit will be discussed in further detail at your follow-up appointment, if applicable. Discharge Plan Admission Primary Reason for Your Visit: Receiving right sacroiliac joint injection and right pyriformis muscle in Attending Provider: Jung Dunham Instructions Patient Instructions: Anatomy of the Sacroiliac Joint Discharge Orders/Prescriptions Prescriptions: No Action atorvastatin 80 MG tablet 80 mg PO QHS RF: 0 carvedilol 25 MG tablet 25 mg PO BID RF: 0 acetaminophen [Tylenol] 325 MG tablet 650 mg PO Q4H PRN PRN (Reason: Pain) RF: 0 alendronate 70 MG tablet 70 mg PO Q7D@0700 RF: 0 valacyclovir [Valtrex] 500 MG tablet 500 mg PO DAILY PRN (Reason: herpes) RF: 0 coenzyme Q10 50 MG capsule 30 mg PO BID RF: 0 potassium chloride [Klor-Con M20] 20 MEQ tablet 20 meq PO BID RF: 0 trazodone 150 MG tablet 300 mg PO QHS RF: 0 nitroglycerin 0.4 MG Tab.Subl 0.4 mg sublingual PRN PRN (Reason: chest pain) RF: 0 diclofenac sodium 50 MG tablet 50 mg PO BIDCM RF: 0 zolpidem 5 MG tablet 5 mg PO QHS RF: 0 albuterol sulfate [ProAir HFA] 1 PUFF inhaler 1 - 2 puff inhalation Q6H PRN PRN (Reason: Sob &/Or Wheezing) RF: 0 albuterol sulfate [Ventolin HFA] 1 INHALER inhaler 1 - 2 puff inhalation Q4H PRN PRN (Reason: Sob &/Or Wheezing) RF: 0 fluticasone propionate 1 SPRAY Nasal.Sry 1 spray NASAL DAILY RF: 0 multivitamin,[id number] [Therems-M] 1 TABLET tablet 1 tab PO DAILY RF: 0 ranolazine 500 MG tablet 500 mg PO BID RF: 0 buprenorphine [Butrans] 1 EACH Patch.Tdwk 10 mcg TRANSDERM. Q7D RF: 0 Oxybutynin Chloride [Ditropan Xl] 5 MG tablet 5 mg PO 4X/DAY RF: 0 metformin 500 MG tablet 500 mg PO BIDCM RF: 0 magnesium 200 MG tablet 200 mg PO DAILY RF: 0 venlafaxine 150 MG capsule 150 mg PO BID RF: 0 loratadine 10 MG capsule 10 mg PO DAILY RF: 0 trazodone 50 MG tablet 25 mg PO BID RF: 0 acetaminophen-codeine 1 TABLET tablet 1 tab PO TID RF: 0 lisinopril 2.5 MG tablet 2.5 mg PO DAILY RF: 0 rivaroxaban 15 MG tablet 15 mg PO DAILY RF: 0 Referrals / Follow Up: THUAN ALVARADO [Other] Disposition Disposition (needs filled in before D/C Order can be placed): Home, Self Care
--- NOTE | 2021-04-07 13:39 | PCM.OPRPT ---
Problems Associated Problem List Diagnoses (1) Piriformis muscle pain: (2) Bilateral sacroiliitis: Report of Operation Date of Procedure: 04/07/21 Pre-Operative Diagnosis: Sacroiliitis and piriformis muscle pain Post-Operative Diagnosis: Same/on the right side Surgery/Procedure Performed:: Right side sacroiliac joint injection and right pyriformis muscle injection under fluoroscopy guidance Surgeon: Jung Dunham Type of Anesthesia: Local and MAC Special Medications: Kenalog 80 mg, Marcaine 0.5%, lidocaine 0.5%, contrast solution. Estimated Blood Loss (mL): None Description of Procedure: Under sterile conditions. Patient placed in the prone position, pressure points were padded, patient was ready from the nursing and the anesthesia team. After identification of the side and the target area for the block at the right sacroiliac joint and right pyriformis muscle area under guided fluoroscopy, the entry site was marked with marking pen. I used Betadine for sterilization of the skin, sterile draping were applied. Using 25-gauge needle to infiltrate the skin with local anesthesia using preservative-free lidocaine 0.5% injected 5 mL at each site of entry. Using oblique fluoroscopy, accessed the right sacroiliac joint, right pyriformis muscle using 22-gauge spinal needle under oblique angle fluoroscopy to align the joints anterior posterior view and access to the lower third of the joint. Confirmed with AP view showed Contras distribution across the anatomical line of the joint. Also noted distribution across anatomical line of the piriformis muscle.. After confirmation of appropriate needle placement to the targeted area with AP and lateral fluoroscopy, injected 6 mL mixture of preservative-free Marcaine 0.5% and Kenalog [20] mg to the right sacroiliac joint, seems concentration was 3 mL injected to the right piriformis muscle area. [place] was removed, pressure dressing were applied. Patient tolerated the procedure well and was taken to the recovery. Complications No complication
[2021-04-07] MEDS: Triamcinolone Acetonide 40 MG/ML Vial (13:50)
[2021-04-07] MEDS: Bupivacaine 0.25% 30 ML Vial (13:50)
[2021-04-07] MEDS: Lidocaine 1% (30 ml sdv) 30 ML Vial (13:50)
== END 2021-04-07 16:05 | disposition home or self-care (01) ==
LOC: SDC 12:30 → AC 12:32
PROVIDERS: Referring Provider Anesthesiology; Visit Provider Anesthesiology
PROC: 3E0U3GC Introduction of Other Therapeutic Substance into Joints, Percutaneous Approach (ICD-10-PCS; CPT 27096; principal; 2021-04-07 13:25)
DX: M46.1 Sacroiliitis, not elsewhere classified (principal); M79.7 Fibromyalgia; G89.29 Other chronic pain; M51.16 Intervertebral disc disorders with radiculopathy, lumbar region; M47.26 Other spondylosis with radiculopathy, lumbar region; M50.320 Other cervical disc degeneration, mid-cervical region, unspecified level; M17.0 Bilateral primary osteoarthritis of knee; M19.072 Primary osteoarthritis, left ankle and foot; M25.551 Pain in right hip; E11.42 Type 2 diabetes mellitus with diabetic polyneuropathy; I10 Essential (primary) hypertension; G47.30 Sleep apnea, unspecified; K21.9 Gastro-esophageal reflux disease without esophagitis; Z79.84 Long term (current) use of oral hypoglycemic drugs; Z79.82 Long term (current) use of aspirin; Z79.899 Other long term (current) drug therapy
CPT/HCPCS: 01992; 20552; 27096; 76000; 77002; 82962; A4216

== ENCOUNTER → 2021-05-05 13:00 | Outpatient (CLI) | payer MEDICAID, SELFPAY ==
[2021-05-05 14:40] LABS: BUP Internal Control LINE = VALID (VALID); Buprenorphine Drug Screen Negative (<10 ng/mL)
[2021-05-05 14:42] LABS: Amphetamine Urine VISTA NEGATIVE (<1000 ng/mL); Barbiturate Urine VISTA NEGATIVE (< 200 ng/mL); Benzodiazepine Urine VISTA NEGATIVE (< 200 ng/mL); Cocaine Urine VISTA NEGATIVE (< 300 ng/mL); Ecstacy Urine VISTA POSITIVE (< 500 ng/mL); Methadone Urine VISTA NEGATIVE (< 300 ng/mL); PCP Urine VISTA NEGATIVE (< 25 ng/mL); THC Urine VISTA NEGATIVE (< 50 ng/mL); Vista UDS pH Range 7
== END ==
PROVIDERS: Referring Provider Anesthesiology; Visit Provider Anesthesiology
DX: F11.20 Opioid dependence, uncomplicated (principal)
CPT/HCPCS: 80307

== ENCOUNTER 2021-08-18 07:51 | Day surgery (SDC) | payer MEDICARE, MEDICAID, SELFPAY ==
[2021-08-18] VITALS (7 sets, daily range): BP systolic 89–109; BP diastolic 66–78; PULSE 69–73; RESP 16; TEMP 36.1–36.3; O2SAT 95–98; BMI 36.6
[2021-08-18] MEDS: Lactated Ringers 1,000 ML 15 ML IV (09:05)
--- NOTE | 2021-08-18 09:25 | RAD_ITS ---
STUDY: X-RAY - LUMBAR SPINE REASON FOR EXAM: Female, 70 years old. BLOCK, FACET, L3-S1, RIGHT TECHNIQUE: 2 view(s) of the lumbar spine were obtained. COMPARISON: None FINDINGS: Fluoroscopy of the lumbar spine was utilized and operating room during facet injection.. RAD/Lumbar Spine 2 or 3 Views IMPRESSION: Fluoroscopy during facet injection. Electronically Signed: Alex Stanley MD at 7:16 EST Tel , Service support ,
[2021-08-18 09:31] LABS: Bedside Glucose 118 mg/dL (70-110)
--- NOTE | 2021-08-18 09:31 | PCM.OPRPT ---
Problems Associated Problem List Diagnoses (1) Spondylosis of lumbar region without myelopathy or radiculopathy: (2) Spondylosis of lumbar region without myelopathy or radiculopathy: (3) Low back pain: (4) Low back pain: Report of Operation Date of Procedure: 08/18/21 Pre-Operative Diagnosis: Lumbar facet spondylosis Post-Operative Diagnosis: Same Surgery/Procedure Performed:: Right side lumbar facet medial nerve branch block at the level of the right side L3-4, L4-5, L5-S1 under fluoroscopy guidance Description of Surgical Findings:: Lumbar facet injection on the right side for lumbar facet spondylosis and lower back pain Type of Anesthesia: Local MAC, Local and MAC Description of Procedure: Under sterile conditions. Patient placed in the prone position, pressure points were padded, patient was ready from the nursing and the anesthesia team. After identification of the side and the target area for the block under guided fluoroscopy, the entry site was marked with marking pen. I used Betadine for sterilization of the skin, sterile draping were applied. Using 25-gauge needle to infiltrate the skin with local anesthesia using preservative-free lidocaine 0.5% injected 2.5 mL at each site of entry. Using oblique fluoroscopy, accessed the right medial nerve branch supplying the [right] lumbar facets L3-4, L4-5, L5-S1 using 22-gauge spinal needle. After confirmation of appropriate needle placement to the targeted area with AP and lateral fluoroscopy, injected 2.5 mL mixture of preservative-free Marcaine 0.5% and Kenalog [20] mg at each site. [place] was removed, pressure dressing were applied. Patient tolerated the procedure well and was taken to the recovery.
--- NOTE | 2021-08-18 09:38 | PCM.DC ---
Discharge Instructions Diet Discharge Diet: No restrictions Activity May resume sexual activity in: No Restrictions Weight Bearing Status: Weight bearing as tolerated Dressing / Incision Call your doctor if your incision/area has: Continuous Slow Oozing, Sudden Increased Bleeding, Increased Pain/ Swelling, Increased Redness, Foul Smelling Discharge and Swelling at the incision site Call your doctor if you observe: Fever of 101 or Higher, Coldness, Increased Pain, Numbness or Tingling, Change in Color, Inability to urinate, Inability to have a bowel movement, Increased palpitations (irregular heartbeat), Calf discomfort and Uncontrolled pain Suture Line Care: Avoid Pulling/Pushing and Avoid Pinching/Bending Change Dressing in: 1 day Remove Dressing in: 1 day Cleanse incision/area with: Soap & Water and Keep Dressing Clean & Dry Follow Up Care Please Follow Up With: Jung Dunham MD When: 2 to 4-week Test Results: Test results from this visit will be discussed in further detail at your follow-up appointment, if applicable. Discharge Plan Admission Primary Reason for Your Visit: Receiving lumbar facet blocks on the right side for lower back pain Attending Provider: Jung Dunham Discharge Orders/Prescriptions Prescriptions: No Action atorvastatin 80 MG tablet 80 mg PO QHS RF: 0 carvedilol 25 MG tablet 25 mg PO BID RF: 0 acetaminophen [Tylenol] 325 MG tablet 650 mg PO Q4H PRN PRN (Reason: Pain) RF: 0 alendronate 70 MG tablet 70 mg PO Q7D@0700 RF: 0 valacyclovir [Valtrex] 500 MG tablet 500 mg PO DAILY PRN (Reason: herpes) RF: 0 coenzyme Q10 50 MG capsule 30 mg PO BID RF: 0 potassium chloride [Klor-Con M20] 20 MEQ tablet 20 meq PO BID RF: 0 trazodone 150 MG tablet 300 mg PO QHS RF: 0 nitroglycerin 0.4 MG tablet, sublingual 0.4 mg sublingual PRN PRN (Reason: chest pain) RF: 0 diclofenac sodium 50 MG tablet 50 mg PO BIDCM RF: 0 zolpidem 5 MG tablet 5 mg PO QHS RF: 0 albuterol sulfate [ProAir HFA] 1 PUFF inhaler 1 - 2 puff inhalation Q6H PRN PRN (Reason: Sob &/Or Wheezing) RF: 0 albuterol sulfate [Ventolin HFA] 1 INHALER inhaler 1 - 2 puff inhalation Q4H PRN PRN (Reason: Sob &/Or Wheezing) RF: 0 fluticasone propionate 1 SPRAY spray,suspension 1 spray NASAL DAILY RF: 0 Therems-M 1 TABLET tablet 1 tab PO DAILY RF: 0 ranolazine 500 MG tablet 500 mg PO BID RF: 0 buprenorphine [Butrans] 1 EACH patch weekly 10 mcg TRANSDERM. Q7D RF: 0 Oxybutynin Chloride [Ditropan Xl] 5 MG tablet 5 mg PO 4X/DAY RF: 0 metformin 500 MG tablet 500 mg PO BIDCM RF: 0 magnesium 200 MG tablet 200 mg PO DAILY RF: 0 venlafaxine 150 MG capsule 150 mg PO BID RF: 0 loratadine 10 MG capsule 10 mg PO DAILY RF: 0 trazodone 50 MG tablet 25 mg PO BID RF: 0 acetaminophen-codeine 1 TABLET tablet 1 tab PO TID RF: 0 lisinopril 2.5 MG tablet 2.5 mg PO DAILY RF: 0 rivaroxaban 15 MG tablet 15 mg PO DAILY RF: 0 lansoprazole [Prevacid] 30 mg Capsule,Delayed Release(Dr/Ec) 30 mg PO DAILY RF: 0 Referrals / Follow Up: THUAN ALVARADO [Other] Disposition Disposition (needs filled in before D/C Order can be placed): Home, Self Care
[2021-08-18] MEDS: Bupivacaine 0.25% 30 ML Vial (09:50)
[2021-08-18] MEDS: Lidocaine 1% (30 ml sdv) 30 ML Vial (09:50)
[2021-08-18] MEDS: Triamcinolone Acetonide 40 MG/ML Vial (09:50)
== END 2021-08-18 11:33 | disposition home or self-care (01) ==
LOC: SDC 07:52 → AC 07:54
PROVIDERS: Referring Provider Anesthesiology; Visit Provider Anesthesiology
PROC: 3E0T3BZ Introduction of Anesthetic Agent into Peripheral Nerves and Plexi, Percutaneous Approach (ICD-10-PCS; CPT 64493; principal; 2021-08-18 09:20)
DX: M47.816 Spondylosis without myelopathy or radiculopathy, lumbar region (principal); M47.26 Other spondylosis with radiculopathy, lumbar region; I51.9 Heart disease, unspecified; K21.9 Gastro-esophageal reflux disease without esophagitis; E11.9 Type 2 diabetes mellitus without complications; Z79.899 Other long term (current) drug therapy; Z79.84 Long term (current) use of oral hypoglycemic drugs; M19.072 Primary osteoarthritis, left ankle and foot; M79.7 Fibromyalgia; G89.29 Other chronic pain
CPT/HCPCS: 64493; 64494; 64495; 64483; 72100; 82962; J7120; A4216

== ENCOUNTER 2021-11-06 11:58 | Day surgery (SDC) | payer MEDICARE, MEDICAID, SELFPAY ==
[2021-11-06 12:34] VITALS: BP 101/80; PULSE 69; RESP 18; TEMP 36.2; O2SAT 96; BMI 37.4
[2021-11-06] MEDS: Lactated Ringers 1,000 ML 15 ML IV (12:41)
--- NOTE | 2021-11-06 13:45 | RAD_ITS ---
PROCEDURE: Left L4-L5 and L5-S1 transforaminal nerve root block. DATE OF EXAMINATION: 11/06/2021 INDICATION: Female, 71 years old. Chronic back pain. FLUOROSCOPY TIME (if supplied): (10.6 seconds) minutes/seconds. 3 images were obtained. RAD/Lumbar Spine 2 or 3 Views IMPRESSION: Intraoperative images are provided for left L4-L5 and L5-S1 transforaminal nerve root block. Electronically Signed: Surendra Ferrell MD at 15:17 EST ,
[2021-11-06] MEDS: Triamcinolone Acetonide 40 MG/ML Vial (14:15)
[2021-11-06 14:25] VITALS: BP 101/80; BP 95/65; PULSE 67; RESP 16; TEMP 36.1; O2SAT 96
[2021-11-06 14:30] VITALS: BP 101/80; BP 102/65; PULSE 64; RESP 16; O2SAT 96
[2021-11-06 14:35] VITALS: BP 101/80; BP 108/71; PULSE 65; RESP 16; O2SAT 96
[2021-11-06 14:36] LABS: Bedside Glucose 116 mg/dL (74-106)
[2021-11-06 14:40] VITALS: BP 101/80; BP 123/84; PULSE 65; RESP 16; TEMP 36.1; O2SAT 95
[2021-11-06 15:10] VITALS: BP 101/80
== END 2021-11-06 23:59 | disposition home or self-care (01) ==
LOC: SDC 11:59 → AC 12:01
PROVIDERS: Referring Provider Anesthesiology Pain Medicine; Visit Provider Anesthesiology Pain Medicine
PROC: 3E0S3BZ Introduction of Anesthetic Agent into Epidural Space, Percutaneous Approach (ICD-10-PCS; CPT 64484; principal; 2021-11-06 13:40)
DX: M51.26 Other intervertebral disc displacement, lumbar region (principal); J44.9 Chronic obstructive pulmonary disease, unspecified; E11.9 Type 2 diabetes mellitus without complications; M51.27 Other intervertebral disc displacement, lumbosacral region; M51.36 Other intervertebral disc degeneration, lumbar region; M51.37 Other intervertebral disc degeneration, lumbosacral region; M54.16 Radiculopathy, lumbar region; M54.17 Radiculopathy, lumbosacral region; K21.9 Gastro-esophageal reflux disease without esophagitis; I51.9 Heart disease, unspecified; M19.90 Unspecified osteoarthritis, unspecified site; Z79.899 Other long term (current) drug therapy; Z79.82 Long term (current) use of aspirin; Z79.84 Long term (current) use of oral hypoglycemic drugs; Z99.81 Dependence on supplemental oxygen; G25.81 Restless legs syndrome; I25.2 Old myocardial infarction; M47.892 Other spondylosis, cervical region; M50.120 Mid-cervical disc disorder, unspecified level; M50.30 Other cervical disc degeneration, unspecified cervical region; M50.20 Other cervical disc displacement, unspecified cervical region; M47.812 Spondylosis without myelopathy or radiculopathy, cervical region
CPT/HCPCS: 64484; 01992; 64483; 72100; 82962; J7120; A4216

== ENCOUNTER 2021-12-29 11:40 | Day surgery (SDC) | payer MEDICARE, MEDICAID, SELFPAY ==
[2020-12-23 12:33] VITALS: BMI 36.7
[2021-12-29] MEDS: Lactated Ringers 1,000 ML 15 ML IV (11:50)
[2021-12-29 12:01] VITALS: BP 124/88; PULSE 77; RESP 18; TEMP 36.1; O2SAT 96; BMI 37.5
[2021-12-29 12:10] LABS: Bedside Glucose 143 mg/dL (74-106)
--- NOTE | 2021-12-29 12:27 | RAD_ITS ---
PROCEDURE: Right SI joint block. DATE OF EXAMINATION: 12/29/2021 INDICATION: Female, 71 years old. Left pelvic pain. FLUOROSCOPY TIME (if supplied): (5 seconds) minutes/seconds. 2 images were obtained. RAD/Fluoro Guided Needle Placement IMPRESSION: Intraoperative fluoroscopic services provided for left sacroiliac joint block. Electronically Signed: Surendra Ferrell MD at 12:59 EDT ,
[2021-12-29] MEDS: Triamcinolone Acetonide 40 MG/ML Vial (12:35)
[2021-12-29] MEDS: 0.9% Normal Saline (Pres. free 10 ML Vial (12:35)
[2021-12-29 12:44] VITALS: BP 101/75; BP 124/88; PULSE 79; RESP 16; TEMP 36.2; O2SAT 97
[2021-12-29 12:50] VITALS: BP 105/85; BP 124/88; PULSE 73; RESP 16; O2SAT 96
[2021-12-29 12:55] VITALS: BP 111/63; BP 124/88; PULSE 73; RESP 15; O2SAT 95
[2021-12-29 12:59] VITALS: BP 110/26; BP 124/88; PULSE 55; RESP 16; TEMP 36.2; O2SAT 92
--- NOTE | 2021-12-29 13:15 | SUR.PHASEII ---
DR SEGOVIA NOTIFIED VIA PHONE REQUESTING DILAUDID 0.5 MG IV, AND PHENERGAN 12.5 MG IM . ORDER OBTAINED READ BACK.
[2021-12-29] MEDS: HYDROmorphone 1 MG/ML Syringe 0.5 MG IV (13:21)
[2021-12-29] MEDS: proMETHazine 25 MG/ML Syringe 12.5 MG IM (13:33)
[2021-12-29 13:59] VITALS: BP 124/88; BP 133/75; PULSE 74; RESP 18; TEMP 36.2; O2SAT 98
[2021-12-29] MEDS: 0.9% Saline Lock 10 ML Syringe IV (14:02)
== END 2021-12-29 14:35 | disposition home or self-care (01) ==
LOC: SDC 11:40 → AC 11:42
PROVIDERS: Referring Provider Anesthesiology Pain Medicine; Visit Provider Anesthesiology Pain Medicine
PROC: 3E0U3GC Introduction of Other Therapeutic Substance into Joints, Percutaneous Approach (ICD-10-PCS; CPT 27096; principal; 2021-12-29 12:25)
DX: M46.1 Sacroiliitis, not elsewhere classified (principal); E11.9 Type 2 diabetes mellitus without complications; M47.816 Spondylosis without myelopathy or radiculopathy, lumbar region; M51.36 Other intervertebral disc degeneration, lumbar region; K21.9 Gastro-esophageal reflux disease without esophagitis; Z79.84 Long term (current) use of oral hypoglycemic drugs; Z79.899 Other long term (current) drug therapy
CPT/HCPCS: 27096; 01250; 77002; 76000; 82962; J7120; A4216; J3490